=== PATIENT | female | born 1980 | race Caucasian/White ===

== ENCOUNTER 2016-06-30 11:11 | Inpatient (IN) | payer OTHER ==
[2016-06-30 11:50] VITALS: BMI 28.0
--- NOTE | 2016-06-30 13:32 | HP ---
Admission [facility] Chief Complaint: REHAB TX FOR ALCOHOL AND DRUG ADDICTION Allergies/Adverse Reactions: Allergies Allergy/AdvReac Type Severity Reaction Status Date / Time No Known Drug Allergies Allergy Verified 06/30/16 12:29 NKA Allergy Uncoded 06/30/16 12:29 History of Present Illness: 36 Y/O H/F WITH A HX OF ALCOHOL,CRACK AND MARIJUANA DEPENDENCE. PT STATES SHE ALSO BUYS/USES PILLS ON THE STREET---"RESPARIDOL". Exam Limitations: No Limitations - Ebola screening Have you traveled outside of the country in the last 21 days: No Have you had contact with anyone from an Ebola affected area: No Have you been sick,other than usual withdrawal symptoms: No Do you have a fever: No - Review of Systems Constitutional: Chills, Changes in sleep EENT: reports: Blurred Vision, Tearing, Nose Congestion, Dental Problems, Other (HX SEPTAL DEVIATION) Respiratory: reports: No Symptoms reported Cardiac: reports: Lightheadedness, Palpitations, Other (HX "SLIGHT HEART MURMUR ") GI: reports: Constipated, Diarrhea, Nausea, Poor Fluid Intake : reports: No Symptoms Reported Musculoskeletal: reports: Back Pain (HX HERNIATED DISC AVASCULAR NECROSIS- BILATERAL HIP BONES), Joint Pain (PLATE RIGHT ANKLE DUE TO FX FROM FALL IN 2012) , Muscle Pain Integumentary: reports: No Symptoms Reported Neuro: reports: Headache, Tremors, Unsteady Gait, Dizziness, Other (BACKOUTS) Endocrine: reports: No Symptoms Reported Hematology: reports: No Symptoms Reported Psychiatric: reports: Orientated x3, Anxious, Depressed (HX DEPRESSION) Other Systems: Reviewed and Negative Patient History - Patient Medical History Hx Anemia: No Hx Asthma: No Hx Chronic Obstructive Pulmonary Disease (COPD): No Hx Cardiac Disorders: Yes (HX HEART MURMUR) Hx Hypertension: No Hx Hypercholesterolemia: No HX Cerebrovascular Accident: No Hx Seizures: No Hx Diabetes: No Hx Gastrointestinal Disorders: No Hx Genitourinary Disorders: Yes (HX UTI) Hx Sexually Transmitted Disorders: Yes (HX GONORRHEA [place] ) Hx Renal Disease (ESRD): No Hx Thyroid Disease: No Hx Human Immunodeficiency Virus (HIV): No (NEGATIVE HX) Hx Hepatitis C: No Hx Depression: Yes (NO CURRENT MED) Hx Suicide Attempt: No (DENIES) Hx Bipolar Disorder: Yes Hx Schizophrenia: No - Patient Surgical History Past Surgical History: Yes Hx Neurologic Surgery: No Hx Cataract Extraction: No Hx Cardiac Surgery: No Hx Lung Surgery: No Hx Breast Biopsy: No Hx Abdominal Surgery: Yes (UMBILICAL HERNIA REPAIR IN 2007) Hx Appendectomy: No Hx Cholecystectomy: No Hx Genitourinary Surgery: No Hx Section: Yes (X1 IN OCTOBER 2014) Hx Orthopedic Surgery: Yes (RIGHT ANKLE W/PLATE DUE TO FX 2012) Hx Hysterectomy: No Other Surgical History: RHINOPLASTY IN 2011 DUE TO DEVIATED SEPTUM Anesthesia Reaction: No - PPD History Previous Implant?: Yes Documented Results: Negative w/o proof Implanted On Prior [facility] Admission?: No PPD to be Administered?: Yes - Reproductive History Patient is a Female of Child Bearing Age (11 -55 yrs old): Yes Last Menstrual Period: 06/05/16 Patient : No - Smoking Cessation Smoking history: Current every day smoker Have you smoked in the past 12 months: Yes Aproximately how many cigarettes per day: 6 Hx Chewing Tobacco Use: No Initiated information on smoking cessation: Yes 'Breaking Loose' booklet given: 06/30/16 - Substance & Tx. History Hx Alcohol Use: Yes (BEER/LIQUOR) Hx Substance Use: Yes (CRACK/MARIJUANA) Substance Use Type: Alcohol, Cocaine, Marijuana Hx Substance Use Treatment: Yes - Substances Abused Alcohol Route: Oral Frequency: 3-6 times per week (2-3X/WEEK) Amount used: 2 40 OZ/1 PT Age of first use: 11 Date of Last Use: 06/24/16 Crack Route: Smoking Frequency: Daily Amount used: $100 -150 Age of first use: 17 Date of Last Use: 06/26/16 Marijuana/Hashish Route: Smoking Frequency: Daily Amount used: $10 - 20 Age of first use: 11 Date of Last Use: 06/25/16 Family Disease History - Family Disease History Family Disease History: Diabetes: Grandparent (HTN/SRTOKE-), Heart Disease: Grandparent, Other: Grandparent, Father (HIV/AIDS-), Mother ( HIV/AIDS-) Admission Physical Exam [facility] - Vital Signs Vital Signs: Vital Signs - 24 hr 06/30/16 11:45 Temperature 97.7 F Pulse Rate 72 Respiratory 18 Rate Blood Pressure 93/57 - Physical General Appearance: Yes: No Apparent Distress, Irritable, Anxious HEENTM: Yes: EOMI, Normocephalic, LAKE, Pharynx Normal Respiratory: Yes: Chest Non-Tender, Lungs Clear, Normal Breath Sounds, No Respiratory Distress Neck: Yes: Supple, Trachea in good position Breast: Yes: Breast Exam Deferred Cardiology: Yes: S1, S2, Irregular Abdominal: Yes: Normal Bowel Sounds, Non Tender, Soft Genitourinary: Yes: Other (N/C) Back: Yes: Within Normal Limits Musculoskeletal: Yes: full range of Motion, Gait Steady Extremities: Yes: Normal Range of Motion, Non-Tender Neurological: Yes: tail edger II-XII NML intact, Fully Oriented, Alert Integumentary: Yes: Dry, Warm, Other (SX SCAR RIGHT ANKLE) Lymphatic: Yes: Within Normal Limits - Diagnostic (1) Alcohol dependence with uncomplicated withdrawal Current Visit: Yes Status: Chronic (2) Cocaine dependence, uncomplicated Current Visit: Yes Status: Acute (3) Cannabis dependence, uncomplicated Current Visit: Yes Status: Chronic Cleared for Admission [facility] - Detox or Rehab Claeared for Rehab Admission: Yes [facility] Breath Alcohol Content Breath Alcohol Content: 0 Urine Pregancy Test - Result Urine Test Results: Negative- NO Line Present Urine Drug Screen - Results Drug Screen Negative: No Urine Drug Screen Results: THC-Marijuana, ABBIE-Cocaine, BZO-Benzodiazepines, TCA- Tricyclic Antidepress
[2016-06-30] MEDS ORDERED: ACETAMINOPHEN 325 MG TABLET (FP) PO PRN (13:52)
[2016-06-30] MEDS ORDERED: MAGNESIUM CITRATE 300 ML BOTTLE PO PRN (13:52)
[2016-06-30] MEDS ORDERED: MAGNESIUM HYDROX 2400MG/30ML ORAL SUSPENSION 30 ML CUP PO PRN (13:52)
[2016-06-30] MEDS ORDERED: LOPERAMIDE HCL 2 MG CAPSULE PO PRN (13:52)
[2016-06-30] MEDS ORDERED: P-EPHED 60MG/TRIPROLIDI 2.5MG TABLET PO PRN (13:52)
[2016-06-30] MEDS ORDERED: IBUPROFEN 400 MG TABLET (FP) PO PRN (13:52)
[2016-06-30] MEDS ORDERED: MENTHOL/PHENOL 1 EACH UD MM PRN (13:52)
[2016-06-30] MEDS ORDERED: guaiFENesin/D-METHORPHAN HB 10 ML UNIT-DOSE CUPS PO PRN (13:52)
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
[2016-06-30] MEDS: NICOTINE POLACRILEX 2 MG GUM BUC PRN (17:45)
[2016-06-30 20:15] LABS: ALBUMIN 3.9 g/dl (3.4-5.0); ANION GAP 7 (8-16); BILIRUBIN,TOTAL 0.5 mg/dL (0.2-1.0); CALCIUM 9.3 mg/dL (8.5-10.1); CO2 27 mmol/L (21-32); CREATININE 0.9 mg/dL (0.55-1.02); GLUCOSE,RANDOM 107 mg/dL (74-106); SGOT/AST 41 U/L (15-37); SGPT/ALT 74 U/L (12-78)
[2016-06-30 20:16] LABS: ALK PHOS 94 U/L (45-117)
[2016-06-30 20:24] LABS: MCH 30.1 pg (25.7-33.7); MCHC 33.3 g/dl (32.0-36.0); MEAN CELL VOLUME 90.4 fl (80-96); MEAN PLT VOLUME 9.2 fl (7.5-11.1); PLATELET COUNT 290 K/MM3 (134-434); WHITE BLOOD COUNT 9.5 K/mm3 (4.0-10.0)
[2016-06-30 20:27] LABS: URINE APPEARANCE SLCLOUDY; URINE BILIRUBIN NEGATIVE (NEGATIVE); URINE BLOOD NEGATIVE (NEGATIVE); URINE COLOR YELLOW; URINE GLUCOSE (UA) NEGATIVE (NEGATIVE); URINE KETONE NEGATIVE (NEGATIVE); URINE LEUK ESTERASE NEGATIVE (NEGATIVE); URINE NITRITE NEGATIVE (NEGATIVE); URINE PROTEIN NEGATIVE (NEGATIVE); URINE UROBILINOGEN NEGATIVE E.U./dl (0.2-1.0)
[2016-06-30] MEDS: THIAMINE HCL 100 MG TABLET (FP) PO SCH (21:26)
[2016-06-30] MEDS: risperiDONE 2 MG TABLET PO SCH (21:26)
[2016-06-30] MEDS: diphenhydrAMINE HCL 50 MG CAPSULE PO PRN (21:27)
[2016-06-30 22:13] LABS: SICKLE CELL SCREEN NEGATIVE (NEGATIVE)
[2016-07-01] MEDS: PRENATAL VITAMINS W/ FOLIC ACID TABLET (FP) PO SCH (10:23)
[2016-07-01] MEDS: NICOTINE POLACRILEX 2 MG GUM BUC PRN ×4 (10:24→21:26)
[2016-07-01] MEDS: hydrOXYzine PAMOATE 25 MG CAPSULE (FP) PO PRN ×2 (10:24→17:36)
[2016-07-01 11:27] LABS: HIV 1 & 2 AB NEGATIVE; HIV 1 AGp24 NEGATIVE
--- NOTE | 2016-07-01 16:53 | EKG ---
Test Reason : Blood Pressure : / mmHG Vent. Rate : 079 BPM Atrial Rate : 079 BPM P-R Int : 168 ms QRS Dur : 084 ms QT Int : 370 ms P-R-T Axes : 030 041 052 degrees QTc Int : 424 ms SINUS RHYTHM WITH OCCASIONAL PREMATURE VENTRICULAR COMPLEXES OTHERWISE NORMAL ECG NO PREVIOUS ECGS AVAILABLE Confirmed by ARDHA GAMBOA, RADHA ([id number]) on 07/01/2016 4:53:07 PM Referred By: Confirmed By:RADHA GARCIA MD
[2016-07-01] MEDS: THIAMINE HCL 100 MG TABLET (FP) PO SCH (21:24)
[2016-07-01] MEDS: risperiDONE 2 MG TABLET PO SCH (21:24)
[2016-07-01] MEDS: diphenhydrAMINE HCL 50 MG CAPSULE PO PRN (21:25)
[2016-07-02] MEDS: PRENATAL VITAMINS W/ FOLIC ACID TABLET (FP) PO SCH (10:08)
[2016-07-02] MEDS: NICOTINE POLACRILEX 2 MG GUM BUC PRN ×2 (10:10→21:25)
[2016-07-02] MEDS: hydrOXYzine PAMOATE 25 MG CAPSULE (FP) PO PRN (10:10)
[2016-07-02] MEDS ORDERED: NAPROXEN 500 MG TABLET (FP) PO ONE (13:57)
[2016-07-02] MEDS: LIDOCAINE 5% TOPICAL PATCH TP SCH (14:46)
[2016-07-02] MEDS: CYCLOBENZAPRINE HCL 10 MG TABLET (FP) PO SCH ×2 (14:46→21:23)
[2016-07-02] MEDS: NAPROXEN 250 MG TABLET (FP) PO SCH (21:22)
[2016-07-02] MEDS: THIAMINE HCL 100 MG TABLET (FP) PO SCH (21:23)
[2016-07-02] MEDS: risperiDONE 2 MG TABLET PO SCH (21:24)
[2016-07-03] MEDS: CYCLOBENZAPRINE HCL 10 MG TABLET (FP) PO SCH ×3 (06:47→21:27)
[2016-07-03] MEDS: NICOTINE POLACRILEX 2 MG GUM BUC PRN ×2 (06:48→21:30)
[2016-07-03] MEDS: PRENATAL VITAMINS W/ FOLIC ACID TABLET (FP) PO SCH (10:03)
[2016-07-03] MEDS: NAPROXEN 250 MG TABLET (FP) PO SCH ×2 (10:04→21:28)
[2016-07-03] MEDS: LIDOCAINE 5% TOPICAL PATCH TP SCH (10:04)
[2016-07-03] MEDS: MAG HYDROX/AL HYDROX/SIMETH 30 ML UNIT-DOSE CUP PO PRN (10:07)
[2016-07-03] MEDS ORDERED: PT OWN MED DRAWER 7, Y5N ONE ×2 (19:22→23:34)
[2016-07-03] MEDS: risperiDONE 2 MG TABLET PO SCH (21:27)
[2016-07-03] MEDS: THIAMINE HCL 100 MG TABLET (FP) PO SCH (21:27)
[2016-07-03] MEDS: hydrOXYzine PAMOATE 25 MG CAPSULE (FP) PO PRN (21:29)
[2016-07-04] MEDS: hydrOXYzine PAMOATE 25 MG CAPSULE (FP) PO PRN ×2 (06:55→21:32)
[2016-07-04] MEDS: CYCLOBENZAPRINE HCL 10 MG TABLET (FP) PO SCH ×3 (06:55→21:31)
[2016-07-04] MEDS: NICOTINE POLACRILEX 2 MG GUM BUC PRN ×4 (06:57→21:33)
[2016-07-04] MEDS: NAPROXEN 250 MG TABLET (FP) PO SCH ×2 (10:00→21:31)
[2016-07-04] MEDS: PRENATAL VITAMINS W/ FOLIC ACID TABLET (FP) PO SCH (10:34)
[2016-07-04] MEDS: LIDOCAINE 5% TOPICAL PATCH TP SCH (10:35)
[2016-07-04] MEDS ORDERED: PT OWN MED DRAWER 7, Y5N ONE (19:15)
[2016-07-04] MEDS: risperiDONE 2 MG TABLET PO SCH (21:31)
[2016-07-04] MEDS: THIAMINE HCL 100 MG TABLET (FP) PO SCH (21:31)
[2016-07-05] MEDS: CYCLOBENZAPRINE HCL 10 MG TABLET (FP) PO SCH ×3 (06:27→21:37)
[2016-07-05] MEDS: NAPROXEN 250 MG TABLET (FP) PO SCH ×2 (10:14→21:39)
[2016-07-05] MEDS: PRENATAL VITAMINS W/ FOLIC ACID TABLET (FP) PO SCH (10:14)
[2016-07-05] MEDS: NICOTINE POLACRILEX 2 MG GUM BUC PRN ×2 (10:14→13:41)
[2016-07-05] MEDS: LIDOCAINE 5% TOPICAL PATCH TP SCH (10:14)
[2016-07-05] MEDS: MAG HYDROX/AL HYDROX/SIMETH 30 ML UNIT-DOSE CUP PO PRN (13:41)
[2016-07-05] MEDS: risperiDONE 2 MG TABLET PO SCH (21:37)
[2016-07-05] MEDS: THIAMINE HCL 100 MG TABLET (FP) PO SCH (21:37)
[2016-07-05] MEDS: hydrOXYzine PAMOATE 25 MG CAPSULE (FP) PO PRN (21:38)
[2016-07-06] MEDS: CYCLOBENZAPRINE HCL 10 MG TABLET (FP) PO SCH ×3 (06:22→21:30)
[2016-07-06] MEDS ORDERED: PT OWN MED DRAWER 7, Y5N ONE ×2 (08:23→20:08)
[2016-07-06] MEDS: NAPROXEN 250 MG TABLET (FP) PO SCH ×2 (10:14→21:30)
[2016-07-06] MEDS: LIDOCAINE 5% TOPICAL PATCH TP SCH (10:14)
[2016-07-06] MEDS: PRENATAL VITAMINS W/ FOLIC ACID TABLET (FP) PO SCH (10:15)
[2016-07-06] MEDS: NICOTINE POLACRILEX 2 MG GUM BUC PRN (13:33)
[2016-07-06] MEDS: risperiDONE 2 MG TABLET PO SCH (21:30)
[2016-07-06] MEDS: THIAMINE HCL 100 MG TABLET (FP) PO SCH (21:30)
[2016-07-06] MEDS: hydrOXYzine PAMOATE 25 MG CAPSULE (FP) PO PRN (21:31)
[2016-07-07] MEDS: CYCLOBENZAPRINE HCL 10 MG TABLET (FP) PO SCH ×3 (06:57→21:31)
[2016-07-07] MEDS: NICOTINE POLACRILEX 2 MG GUM BUC PRN ×4 (06:58→21:31)
[2016-07-07] MEDS: LIDOCAINE 5% TOPICAL PATCH TP SCH (10:16)
[2016-07-07] MEDS: PRENATAL VITAMINS W/ FOLIC ACID TABLET (FP) PO SCH (10:16)
[2016-07-07] MEDS: NAPROXEN 250 MG TABLET (FP) PO SCH ×2 (10:16→21:32)
[2016-07-07] MEDS: hydrOXYzine PAMOATE 25 MG CAPSULE (FP) PO PRN (21:31)
[2016-07-07] MEDS: risperiDONE 2 MG TABLET PO SCH (21:31)
[2016-07-07] MEDS: THIAMINE HCL 100 MG TABLET (FP) PO SCH (21:31)
[2016-07-08] MEDS: CYCLOBENZAPRINE HCL 10 MG TABLET (FP) PO SCH ×3 (06:39→21:36)
[2016-07-08] MEDS: PRENATAL VITAMINS W/ FOLIC ACID TABLET (FP) PO SCH (10:38)
[2016-07-08] MEDS: NAPROXEN 250 MG TABLET (FP) PO SCH ×2 (10:38→21:37)
[2016-07-08] MEDS: NICOTINE POLACRILEX 2 MG GUM BUC PRN ×2 (10:39→13:57)
[2016-07-08] MEDS: LIDOCAINE 5% TOPICAL PATCH TP SCH (10:39)
[2016-07-08] MEDS ORDERED: PHENYLEPHRINE 0.25%/STARCH 1 EACH SUPP.RECT RC ONE (16:45)
[2016-07-08] MEDS: risperiDONE 2 MG TABLET PO SCH (21:36)
[2016-07-08] MEDS: hydrOXYzine PAMOATE 25 MG CAPSULE (FP) PO PRN (21:36)
[2016-07-08] MEDS: THIAMINE HCL 100 MG TABLET (FP) PO SCH (21:36)
[2016-07-09] MEDS: CYCLOBENZAPRINE HCL 10 MG TABLET (FP) PO SCH ×3 (06:25→21:29)
[2016-07-09] MEDS ORDERED: PT OWN MED DRAWER 7, Y5N ONE ×3 (08:17→23:35)
[2016-07-09] MEDS: NAPROXEN 250 MG TABLET (FP) PO SCH ×2 (10:31→21:31)
[2016-07-09] MEDS: PRENATAL VITAMINS W/ FOLIC ACID TABLET (FP) PO SCH (10:31)
[2016-07-09] MEDS: NICOTINE POLACRILEX 2 MG GUM BUC PRN ×2 (10:32→14:39)
[2016-07-09] MEDS: LIDOCAINE 5% TOPICAL PATCH TP SCH (10:32)
[2016-07-09] MEDS ORDERED: HYDROCORTISONE ACETATE 25 MG/SUPP.RECT RC ONE (12:53)
[2016-07-09] MEDS: HYDROCORTISONE 2.5% TOPICAL CREAM 30 GM TUBE TP SCH ×2 (14:17→21:30)
[2016-07-09] MEDS: THIAMINE HCL 100 MG TABLET (FP) PO SCH (21:29)
[2016-07-09] MEDS: hydrOXYzine PAMOATE 25 MG CAPSULE (FP) PO PRN (21:29)
[2016-07-09] MEDS: DOCUSATE SODIUM 100 MG CAPSULE (FP) PO SCH (21:31)
[2016-07-09] MEDS: risperiDONE 2 MG TABLET PO SCH (21:33)
[2016-07-10] MEDS: CYCLOBENZAPRINE HCL 10 MG TABLET (FP) PO SCH ×3 (06:20→21:24)
[2016-07-10] MEDS: LIDOCAINE 5% TOPICAL PATCH TP SCH (10:14)
[2016-07-10] MEDS: HYDROCORTISONE 2.5% TOPICAL CREAM 30 GM TUBE TP SCH ×2 (10:14→21:25)
[2016-07-10] MEDS: NAPROXEN 250 MG TABLET (FP) PO SCH ×2 (10:14→21:23)
[2016-07-10] MEDS: PRENATAL VITAMINS W/ FOLIC ACID TABLET (FP) PO SCH (10:15)
[2016-07-10] MEDS: hydrOXYzine PAMOATE 25 MG CAPSULE (FP) PO PRN ×2 (10:16→21:25)
[2016-07-10] MEDS: NICOTINE POLACRILEX 2 MG GUM BUC PRN ×3 (10:17→21:27)
[2016-07-10] MEDS: DOCUSATE SODIUM 100 MG CAPSULE (FP) PO SCH (21:23)
[2016-07-10] MEDS: risperiDONE 2 MG TABLET PO SCH (21:24)
[2016-07-10] MEDS: THIAMINE HCL 100 MG TABLET (FP) PO SCH (21:24)
[2016-07-11] MEDS: CYCLOBENZAPRINE HCL 10 MG TABLET (FP) PO SCH ×3 (06:19→21:18)
[2016-07-11] MEDS: NAPROXEN 250 MG TABLET (FP) PO SCH ×2 (10:14→21:18)
[2016-07-11] MEDS: LIDOCAINE 5% TOPICAL PATCH TP SCH (10:14)
[2016-07-11] MEDS: PRENATAL VITAMINS W/ FOLIC ACID TABLET (FP) PO SCH (10:14)
[2016-07-11] MEDS: HYDROCORTISONE 2.5% TOPICAL CREAM 30 GM TUBE TP SCH ×2 (10:15→21:19)
[2016-07-11] MEDS: NICOTINE POLACRILEX 2 MG GUM BUC PRN ×3 (10:16→17:30)
[2016-07-11] MEDS ORDERED: PT OWN MED DRAWER 7, Y5N ONE ×2 (12:55→14:27)
[2016-07-11] MEDS: DOCUSATE SODIUM 100 MG CAPSULE (FP) PO SCH (21:18)
[2016-07-11] MEDS: risperiDONE 2 MG TABLET PO SCH (21:18)
[2016-07-11] MEDS: THIAMINE HCL 100 MG TABLET (FP) PO SCH (21:19)
[2016-07-11] MEDS: hydrOXYzine PAMOATE 25 MG CAPSULE (FP) PO PRN (21:20)
[2016-07-12] MEDS: CYCLOBENZAPRINE HCL 10 MG TABLET (FP) PO SCH ×3 (06:29→21:30)
[2016-07-12] MEDS: HYDROCORTISONE 2.5% TOPICAL CREAM 30 GM TUBE TP SCH ×2 (10:02→21:31)
[2016-07-12] MEDS: PRENATAL VITAMINS W/ FOLIC ACID TABLET (FP) PO SCH (10:02)
[2016-07-12] MEDS: LIDOCAINE 5% TOPICAL PATCH TP SCH (10:02)
[2016-07-12] MEDS: NAPROXEN 250 MG TABLET (FP) PO SCH ×2 (10:03→21:30)
[2016-07-12] MEDS: NICOTINE POLACRILEX 2 MG GUM BUC PRN ×2 (10:04→13:13)
--- NOTE | 2016-07-12 17:17 | PN ---
[id number] 69 108/71 Date of Session: 07/12/16 Chief Complaint:: Progress update HPI: Patient addressed Alcohol,Cocaine and Cannabis dependence comorbid with ROS: Significant for Avascular necrosis. of Both hips. Current Medications: Active Medications Generic Name Dose Route Start Last Admin Trade Name Freq PRN Reason Stop Dose Admin Acetaminophen 650 mg 06/30/16 13:52 Tylenol - PO Q4H PRN PAIN Al Hydroxide/Mg Hydroxide 30 ml 06/30/16 13:52 07/05/16 13:41 Mylanta Oral Suspension - PO 30 ml Q6H PRN Administration DYSPEPSIA Cyclobenzaprine HCl 10 mg 07/02/16 14:00 07/12/16 13:11 Flexeril - PO 10 mg TID SUSAN Administration Diphenhydramine HCl 50 mg 06/30/16 13:52 07/01/16 21:25 Benadryl - PO 50 mg HSMR1 PRN Administration INSOMNIA Docusate Sodium 300 mg 07/09/16 22:00 07/11/16 21:18 Colace - PO 300 mg HS SUSAN Administration Eucalyptus/Menthol/Phenol/Sorbitol 1 each 06/30/16 13:52 Cepastat Lozenge - MM Q4H PRN SORE THROAT Guaifenesin 10 ml 06/30/16 13:52 Robitussin Dm - PO Q6H PRN COUGH Hydrocortisone 1 applic 07/09/16 12:30 07/12/16 10:02 Anusol 2.5% Hc Cream - TP 1 applic BID SUSAN Administration Hydroxyzine Pamoate 25 mg 06/30/16 13:52 07/11/16 21:20 Vistaril - PO 25 mg Q4H PRN Administration AGITATION Lidocaine 1 patch 07/02/16 14:00 07/12/16 10:02 Lidoderm Patch - TP 1 patch DAILY SUSAN Administration Loperamide HCl 4 mg 06/30/16 13:52 Imodium - PO Q6H PRN DIARRHEA Magnesium Citrate 300 ml 06/30/16 13:52 07/10/16 10:18 Citroma - PO 300 ml Q48H PRN Administration CONSTIPATION Magnesium Hydroxide 30 ml 06/30/16 13:52 07/09/16 16:50 Milk Of Magnesia - PO 30 ml DAILY PRN Administration CONSTIPATION Naproxen 250 mg 07/02/16 22:00 07/12/16 10:03 Naprosyn - PO 250 mg BID SUSAN Administration Nicotine Polacrilex 2 mg 06/30/16 13:52 07/12/16 13:13 Nicorette Gum - BUC 2 mg Q2H PRN Administration NICOTINE REPLACEMENT RX Multivit/Folic Acid/Iron 1 tab 07/01/16 10:00 07/12/16 10:02 Vitamins (Sjr) - PO 1 tab DAILY SUSAN Administration Pseudoephedrine/Triprolidine 1 combo 06/30/16 13:52 Actifed - PO TID PRN NASAL CONGESTION Risperidone 2 mg 06/30/16 22:00 07/11/16 21:18 Risperdal - PO 2 mg HS SUSAN Administration Thiamine HCl 100 mg 06/30/16 22:00 07/11/16 21:19 Vitamin B1 - PO 100 mg HS SUSAN Administration Trazodone HCl 50 mg 07/12/16 22:00 Desyrel - PO HS SUSAN Current Side Effect: No Lab tests ordered: No Lab tests reviewed: Yes Provider note:: Patient was evaluated due to her request to see a psychiatrist regarding possibility of applying for SSI.Patients chart was revuewed,History, Diagnosis,medications has been discussed with the patient . Patient reports that she is stable at present and responding to medications. She advised to discuss her situation with her counselour and treating physician on outpatient.Patient is cooperative,compliant with treatment. Continue current medications as per plan. Supportive therapy provided. Total face to face time:: 30 Mental Status Exam - Mental Status Exam Alert and Oriented to: Time, Place, Person Cognitive Function: Grossly Intact Patient Appearance: Unkempt Mood: Anxious Affect: Mood Congruent, Labile Patient Behavior: Restless Speech Pattern: Clear Voice Loudness: Normal Thought Process: Goal Oriented Thought Disorder: Being Controlled Hallucinations: Denies Suicidal Ideation: Denies Homicidal Ideation: Denies Insight/Judgement: Fair Sleep: Fair Appetite: Fair Muscle strength/Tone: Normal Gait/Station: Normal Psychiatric Treatment Plan - Problem List (1) Cocaine dependence, uncomplicated Current Visit: Yes (2) Alcohol dependence with uncomplicated withdrawal Current Visit: Yes (3) Cannabis dependence, uncomplicated Current Visit: Yes (4) Bipolar disorder Current Visit: Yes (5) Herniated lumbar intervertebral disc Current Visit: Yes (6) Avascular necrosis of bones of both hips Current Visit: Yes
[2016-07-12] MEDS: THIAMINE HCL 100 MG TABLET (FP) PO SCH (21:29)
[2016-07-12] MEDS: hydrOXYzine PAMOATE 25 MG CAPSULE (FP) PO PRN (21:29)
[2016-07-12] MEDS: risperiDONE 2 MG TABLET PO SCH (21:29)
[2016-07-12] MEDS: DOCUSATE SODIUM 100 MG CAPSULE (FP) PO SCH (21:29)
[2016-07-12] MEDS ORDERED: PT OWN MED DRAWER 7, Y5N ONE (21:31)
[2016-07-12] MEDS ORDERED: traZODone HCL 50 MG TABLET (FP) PO SCH (22:00)
[2016-07-13] MEDS: CYCLOBENZAPRINE HCL 10 MG TABLET (FP) PO SCH ×3 (06:38→21:30)
[2016-07-13] MEDS: PRENATAL VITAMINS W/ FOLIC ACID TABLET (FP) PO SCH (10:07)
[2016-07-13] MEDS: NAPROXEN 250 MG TABLET (FP) PO SCH ×2 (10:07→21:31)
[2016-07-13] MEDS: LIDOCAINE 5% TOPICAL PATCH TP SCH (10:07)
[2016-07-13] MEDS: HYDROCORTISONE 2.5% TOPICAL CREAM 30 GM TUBE TP SCH ×2 (10:08→21:31)
[2016-07-13] MEDS: NICOTINE POLACRILEX 2 MG GUM BUC PRN ×2 (10:34→13:52)
[2016-07-13] MEDS: hydrOXYzine PAMOATE 25 MG CAPSULE (FP) PO PRN (21:29)
[2016-07-13] MEDS: THIAMINE HCL 100 MG TABLET (FP) PO SCH (21:29)
[2016-07-13] MEDS: DOCUSATE SODIUM 100 MG CAPSULE (FP) PO SCH (21:30)
[2016-07-13] MEDS: risperiDONE 2 MG TABLET PO SCH (21:30)
[2016-07-13] MEDS ORDERED: TUBERCULIN PPD 5 TU/0.1ML VIAL ID ONE (23:20)
[2016-07-14] MEDS: CYCLOBENZAPRINE HCL 10 MG TABLET (FP) PO SCH ×3 (06:28→21:23)
[2016-07-14] MEDS: NAPROXEN 250 MG TABLET (FP) PO SCH ×2 (10:07→21:23)
[2016-07-14] MEDS: PRENATAL VITAMINS W/ FOLIC ACID TABLET (FP) PO SCH (10:07)
[2016-07-14] MEDS: LIDOCAINE 5% TOPICAL PATCH TP SCH (10:08)
[2016-07-14] MEDS: HYDROCORTISONE 2.5% TOPICAL CREAM 30 GM TUBE TP SCH ×2 (10:08→21:26)
[2016-07-14] MEDS: NICOTINE POLACRILEX 2 MG GUM BUC PRN ×3 (10:09→21:25)
[2016-07-14] MEDS ORDERED: MAGNESIUM CITRATE 300 ML BOTTLE PO ONE (14:31)
--- NOTE | 2016-07-14 14:33 | PN ---
[facility] Progress Note Note: C/O SEVERE CONSTIPATION P : CITROMA + METAMUCIL + COLACE
[2016-07-14] MEDS ORDERED: PT OWN MED DRAWER 7, Y5N ONE (19:59)
[2016-07-14] MEDS: DOCUSATE SODIUM 100 MG CAPSULE (FP) PO SCH (21:22)
[2016-07-14] MEDS: risperiDONE 2 MG TABLET PO SCH (21:23)
[2016-07-14] MEDS: THIAMINE HCL 100 MG TABLET (FP) PO SCH (21:23)
[2016-07-14] MEDS: hydrOXYzine PAMOATE 25 MG CAPSULE (FP) PO PRN (21:25)
[2016-07-14] MEDS: PSYLLIUM 5.85 GM PACKET PO SCH (21:26)
[2016-07-15] MEDS: CYCLOBENZAPRINE HCL 10 MG TABLET (FP) PO SCH ×3 (06:18→21:26)
[2016-07-15] MEDS ORDERED: PT OWN MED DRAWER 7, Y5N ONE ×4 (08:56→23:30)
[2016-07-15] MEDS: LIDOCAINE 5% TOPICAL PATCH TP SCH (10:27)
[2016-07-15] MEDS: HYDROCORTISONE 2.5% TOPICAL CREAM 30 GM TUBE TP SCH ×2 (10:27→21:28)
[2016-07-15] MEDS: PRENATAL VITAMINS W/ FOLIC ACID TABLET (FP) PO SCH (10:27)
[2016-07-15] MEDS: PSYLLIUM 5.85 GM PACKET PO SCH ×2 (10:27→21:28)
[2016-07-15] MEDS: NAPROXEN 250 MG TABLET (FP) PO SCH ×2 (10:28→22:30)
[2016-07-15] MEDS: NICOTINE POLACRILEX 2 MG GUM BUC PRN ×3 (10:28→18:13)
[2016-07-15] MEDS: risperiDONE 2 MG TABLET PO SCH (21:26)
[2016-07-15] MEDS: DOCUSATE SODIUM 100 MG CAPSULE (FP) PO SCH (21:26)
[2016-07-15] MEDS: THIAMINE HCL 100 MG TABLET (FP) PO SCH (21:26)
[2016-07-15] MEDS: hydrOXYzine PAMOATE 25 MG CAPSULE (FP) PO PRN (21:26)
[2016-07-16] MEDS: CYCLOBENZAPRINE HCL 10 MG TABLET (FP) PO SCH ×3 (06:02→21:44)
[2016-07-16] MEDS ORDERED: PT OWN MED DRAWER 7, Y5N ONE ×4 (08:35→20:12)
[2016-07-16] MEDS: NICOTINE POLACRILEX 2 MG GUM BUC PRN ×2 (09:34→20:15)
[2016-07-16] MEDS: PSYLLIUM 5.85 GM PACKET PO SCH ×2 (10:16→22:15)
[2016-07-16] MEDS: LIDOCAINE 5% TOPICAL PATCH TP SCH (10:16)
[2016-07-16] MEDS: PRENATAL VITAMINS W/ FOLIC ACID TABLET (FP) PO SCH (10:17)
[2016-07-16] MEDS: HYDROCORTISONE 2.5% TOPICAL CREAM 30 GM TUBE TP SCH ×2 (10:17→21:46)
[2016-07-16] MEDS: NAPROXEN 250 MG TABLET (FP) PO SCH ×2 (10:17→21:44)
[2016-07-16] MEDS: hydrOXYzine PAMOATE 25 MG CAPSULE (FP) PO PRN ×2 (15:36→21:44)
[2016-07-16] MEDS: THIAMINE HCL 100 MG TABLET (FP) PO SCH (21:44)
[2016-07-16] MEDS: risperiDONE 2 MG TABLET PO SCH (21:44)
[2016-07-16] MEDS: DOCUSATE SODIUM 100 MG CAPSULE (FP) PO SCH (21:44)
[2016-07-17] MEDS: CYCLOBENZAPRINE HCL 10 MG TABLET (FP) PO SCH ×3 (07:02→21:36)
[2016-07-17] MEDS: LIDOCAINE 5% TOPICAL PATCH TP SCH (10:10)
[2016-07-17] MEDS: HYDROCORTISONE 2.5% TOPICAL CREAM 30 GM TUBE TP SCH ×2 (10:11→21:36)
[2016-07-17] MEDS: PSYLLIUM 5.85 GM PACKET PO SCH ×2 (10:11→21:37)
[2016-07-17] MEDS: PRENATAL VITAMINS W/ FOLIC ACID TABLET (FP) PO SCH (10:11)
[2016-07-17] MEDS: hydrOXYzine PAMOATE 25 MG CAPSULE (FP) PO PRN ×2 (10:11→21:36)
[2016-07-17] MEDS: NAPROXEN 250 MG TABLET (FP) PO SCH ×2 (10:12→21:38)
[2016-07-17] MEDS: NICOTINE POLACRILEX 2 MG GUM BUC PRN ×2 (10:13→17:48)
[2016-07-17] MEDS: risperiDONE 2 MG TABLET PO SCH (21:36)
[2016-07-17] MEDS: THIAMINE HCL 100 MG TABLET (FP) PO SCH (21:36)
[2016-07-17] MEDS: DOCUSATE SODIUM 100 MG CAPSULE (FP) PO SCH (21:36)
[2016-07-18] MEDS: CYCLOBENZAPRINE HCL 10 MG TABLET (FP) PO SCH ×3 (06:24→21:48)
[2016-07-18] MEDS ORDERED: PT OWN MED DRAWER 7, Y5N ONE (07:44)
[2016-07-18] MEDS: PSYLLIUM 5.85 GM PACKET PO SCH ×2 (09:57→21:49)
[2016-07-18] MEDS: HYDROCORTISONE 2.5% TOPICAL CREAM 30 GM TUBE TP SCH ×2 (09:58→21:46)
[2016-07-18] MEDS: PRENATAL VITAMINS W/ FOLIC ACID TABLET (FP) PO SCH (09:58)
[2016-07-18] MEDS: LIDOCAINE 5% TOPICAL PATCH TP SCH (09:58)
[2016-07-18] MEDS: NAPROXEN 250 MG TABLET (FP) PO SCH ×2 (09:58→21:49)
[2016-07-18] MEDS: NICOTINE POLACRILEX 2 MG GUM BUC PRN ×3 (09:59→15:46)
[2016-07-18] MEDS: DOCUSATE SODIUM 100 MG CAPSULE (FP) PO SCH (21:48)
[2016-07-18] MEDS: risperiDONE 2 MG TABLET PO SCH (21:48)
[2016-07-18] MEDS: THIAMINE HCL 100 MG TABLET (FP) PO SCH (21:48)
[2016-07-18] MEDS: hydrOXYzine PAMOATE 25 MG CAPSULE (FP) PO PRN (21:48)
[2016-07-19] MEDS: CYCLOBENZAPRINE HCL 10 MG TABLET (FP) PO SCH ×3 (06:15→21:27)
[2016-07-19] MEDS: LIDOCAINE 5% TOPICAL PATCH TP SCH (10:14)
[2016-07-19] MEDS: PRENATAL VITAMINS W/ FOLIC ACID TABLET (FP) PO SCH (10:14)
[2016-07-19] MEDS: PSYLLIUM 5.85 GM PACKET PO SCH ×2 (10:14→21:28)
[2016-07-19] MEDS: NAPROXEN 250 MG TABLET (FP) PO SCH ×2 (10:14→21:29)
[2016-07-19] MEDS: HYDROCORTISONE 2.5% TOPICAL CREAM 30 GM TUBE TP SCH ×2 (10:15→21:28)
[2016-07-19] MEDS: NICOTINE POLACRILEX 2 MG GUM BUC PRN (10:41)
[2016-07-19] MEDS ORDERED: PT OWN MED DRAWER 7, Y5N ONE ×3 (10:45→15:58)
--- NOTE | 2016-07-19 16:30 | PN ---
Psychiatric Progress Note Vital Signs: Vital Signs Period Temp Pulse Resp BP Sys/Elizabeth Pulse Ox Last 24 Hr 97.8 F 80 18-18 112/70 Date of Session: 07/19/16 Chief Complaint:: Discharge visit HPI: Patient addressed Alcohol,Cocaine and Cannabis dependence comorbid with bipolar disorder. ROS: unremarkable Current Medications: Active Medications Generic Name Dose Route Start Last Admin Trade Name Freq PRN Reason Stop Dose Admin Acetaminophen 650 mg 06/30/16 13:52 Tylenol - PO Q4H PRN PAIN Al Hydroxide/Mg Hydroxide 30 ml 06/30/16 13:52 07/05/16 13:41 Mylanta Oral Suspension - PO 30 ml Q6H PRN Administration DYSPEPSIA Cyclobenzaprine HCl 10 mg 07/02/16 14:00 07/19/16 13:09 Flexeril - PO 10 mg TID SUSAN Administration Diphenhydramine HCl 50 mg 06/30/16 13:52 07/01/16 21:25 Benadryl - PO 50 mg HSMR1 PRN Administration INSOMNIA Docusate Sodium 300 mg 07/09/16 22:00 07/18/16 21:48 Colace - PO 300 mg HS SUSAN Administration Eucalyptus/Menthol/Phenol/Sorbitol 1 each 06/30/16 13:52 Cepastat Lozenge - MM Q4H PRN SORE THROAT Guaifenesin 10 ml 06/30/16 13:52 Robitussin Dm - PO Q6H PRN COUGH Hydrocortisone 1 applic 07/09/16 12:30 07/19/16 10:15 Anusol 2.5% Hc Cream - TP 1 applic BID SUSAN Administration Hydroxyzine Pamoate 25 mg 06/30/16 13:52 07/18/16 21:48 Vistaril - PO 25 mg Q4H PRN Administration AGITATION Lidocaine 1 patch 07/02/16 14:00 07/19/16 10:14 Lidoderm Patch - TP 1 patch DAILY SUSAN Administration Loperamide HCl 4 mg 06/30/16 13:52 Imodium - PO Q6H PRN DIARRHEA Magnesium Citrate 300 ml 06/30/16 13:52 07/10/16 10:18 Citroma - PO 300 ml Q48H PRN Administration CONSTIPATION Magnesium Hydroxide 30 ml 06/30/16 13:52 07/09/16 16:50 Milk Of Magnesia - PO 30 ml DAILY PRN Administration CONSTIPATION Naproxen 250 mg 07/02/16 22:00 07/19/16 10:14 Naprosyn - PO 250 mg BID SUSAN Administration Nicotine Polacrilex 2 mg 06/30/16 13:52 07/19/16 10:41 Nicorette Gum - BUC 2 mg Q2H PRN Administration NICOTINE REPLACEMENT RX Multivit/Folic Acid/Iron 1 tab 07/01/16 10:00 07/19/16 10:14 Vitamins (Sjr) - PO 1 tab DAILY SUSAN Administration Pseudoephedrine/Triprolidine 1 combo 06/30/16 13:52 Actifed - PO TID PRN NASAL CONGESTION Psyllium Hydrophilic Mucilloid 5.85 gm 07/14/16 22:00 07/19/16 10:14 Metamucil (Sugar-Free) - PO 5.85 gm BID SUSAN Administration Risperidone 2 mg 06/30/16 22:00 07/18/16 21:48 Risperdal - PO 2 mg HS SUSAN Administration Thiamine HCl 100 mg 06/30/16 22:00 07/18/16 21:48 Vitamin B1 - PO 100 mg HS SUSAN Administration Current Side Effect: No Lab tests ordered: No Lab tests reviewed: Yes Provider note:: patient will complete this program tomorrow .she has met her treatment goals and will continue to address her issues on outpatient basis at [facility]. Patient continues to find that Risperidone 2 mg po hs helps to reduce her mood instability.Script for 30 days supply provided. Therapy provided focusing on relapse prevention:coping skills, support utlization to maintain recovery porocess has been discussed with the patient. Total face to face time:: 30 Mental Status Exam - Mental Status Exam Alert and Oriented to: Time, Place, Person Cognitive Function: Grossly Intact Patient Appearance: Well Groomed Mood: Euthymic Affect: Mood Congruent, Normal Range Patient Behavior: Cooperative Speech Pattern: Clear Voice Loudness: Normal Thought Process: Goal Oriented Thought Disorder: Not Present Hallucinations: Denies Suicidal Ideation: Denies Homicidal Ideation: Denies Insight/Judgement: Fair Sleep: Fair Appetite: Good Muscle strength/Tone: Normal Gait/Station: Normal Psychiatric Treatment Plan - Problem List (1) Cocaine dependence, uncomplicated Current Visit: Yes (2) Alcohol dependence with uncomplicated withdrawal Current Visit: Yes (3) Cannabis dependence, uncomplicated Current Visit: Yes (4) Bipolar disorder Current Visit: Yes (5) Herniated lumbar intervertebral disc Current Visit: Yes (6) Avascular necrosis of bones of both hips Current Visit: Yes
[2016-07-19] MEDS: hydrOXYzine PAMOATE 25 MG CAPSULE (FP) PO PRN (21:27)
[2016-07-19] MEDS: DOCUSATE SODIUM 100 MG CAPSULE (FP) PO SCH (21:27)
[2016-07-19] MEDS: risperiDONE 2 MG TABLET PO SCH (21:27)
[2016-07-19] MEDS: THIAMINE HCL 100 MG TABLET (FP) PO SCH (21:27)
[2016-07-20] MEDS: CYCLOBENZAPRINE HCL 10 MG TABLET (FP) PO SCH (06:01)
[2016-07-20 06:50] VITALS: BP 104/64; PULSE 76; TEMP 97.3
[2016-07-20] MEDS: NICOTINE POLACRILEX 2 MG GUM BUC PRN (07:05)
[2016-07-20] MEDS: PRENATAL VITAMINS W/ FOLIC ACID TABLET (FP) PO SCH (09:03)
[2016-07-20] MEDS: LIDOCAINE 5% TOPICAL PATCH TP SCH (09:03)
[2016-07-20] MEDS: NAPROXEN 250 MG TABLET (FP) PO SCH (09:03)
[2016-07-20] MEDS: PSYLLIUM 5.85 GM PACKET PO SCH (09:03)
[2016-07-20] MEDS: HYDROCORTISONE 2.5% TOPICAL CREAM 30 GM TUBE TP SCH (09:04)
[2016-07-20] MEDS ORDERED: PT OWN MED DRAWER 7, Y5N ONE (09:35)
== END 2016-07-20 09:09 | disposition home or self-care (01) | DRG 772 ==
LOC: YASAS 11:11 → Y3E 14:14
PROVIDERS: ADMIT Psychiatry & Neurology Psychiatry; ATTEND Psychiatry & Neurology Psychiatry
PROC: HZ42ZZZ Group Counseling for Substance Abuse Treatment, Cognitive-Behavioral (ICD-10-PCS; principal; 2016-07-20)
DX: F10.230 Alcohol dependence with withdrawal, uncomplicated (principal); F14.20 Cocaine dependence, uncomplicated; F12.20 Cannabis dependence, uncomplicated; F31.9 Bipolar disorder, unspecified; M51.26 Other intervertebral disc displacement, lumbar region; M87.88 Other osteonecrosis, other site
CPT/HCPCS: 36415; 80053; 81003; 85027; 85660; 86593; 87389; 93005; 93010

== ENCOUNTER 2017-04-12 11:16 | Inpatient (IN) | payer OTHER ==
[2017-04-12 12:24] VITALS: BMI 28.5
[2017-04-12] MEDS ORDERED: MAGNESIUM CITRATE 300 ML BOTTLE PO PRN (13:05)
[2017-04-12] MEDS ORDERED: LOPERAMIDE HCL 2 MG CAPSULE PO PRN (13:05)
[2017-04-12] MEDS ORDERED: MAGNESIUM HYDROX 2400MG/30ML ORAL SUSPENSION 30 ML CUP PO PRN (13:05)
[2017-04-12] MEDS ORDERED: ACETAMINOPHEN 325 MG TABLET (FP) PO PRN (13:05)
[2017-04-12] MEDS ORDERED: IBUPROFEN 400 MG TABLET (FP) PO PRN (13:05)
[2017-04-12] MEDS ORDERED: MAG HYDROX/AL HYDROX/SIMETH 30 ML UNIT-DOSE CUP PO PRN (13:05)
[2017-04-12] MEDS ORDERED: guaiFENesin/D-METHORPHAN HB 10 ML UNIT-DOSE CUPS PO PRN (13:05)
[2017-04-12] MEDS ORDERED: P-EPHED 60MG/TRIPROLIDI 2.5MG TABLET PO PRN (13:05)
[2017-04-12] MEDS ORDERED: MENTHOL/PHENOL 1 EACH UD MM PRN (13:05)
--- NOTE | 2017-04-12 16:18 | HP ---
EMILY GAMBOA Rehab Assess/Revision - Admission History Admitted to Rehab from: [facility] [place] Date of Admission to Rehab: 04/12/17 - Vital signs Vital Signs: Vital Signs Period Temp Pulse Resp BP Sys/Elizabeth Pulse Ox Last 24 Hr 98.0 F-98.0 F 91-91 18-18 109-109/73-73 - Findings Detox History & Physical reviewed: Yes Concur with findings: Yes Comments/Additional Findings: transferred from detox to rehab admission as per protoccase
--- NOTE | 2017-04-12 16:19 | HP ---
Admission [facility] Allergies/Adverse Reactions: Allergies Allergy/AdvReac Type Severity Reaction Status Date / Time No Known Drug Allergies Allergy Verified 04/08/17 16:19 NKA Allergy Uncoded 04/08/17 16:19 - Ebola screening Have you traveled outside of the country in the last 21 days: No Have you had contact with anyone from an Ebola affected area: No Do you have a fever: No Patient History - Patient Medical History Hx Anemia: No Hx Asthma: No Hx Chronic Obstructive Pulmonary Disease (COPD): No Hx Cancer: No Hx Cardiac Disorders: Yes (Heart Murmur) Hx Congestive Heart Failure: No Hx Hypertension: No Hx Hypercholesterolemia: No Hx Pacemaker: No HX Cerebrovascular Accident: No Hx Seizures: No Hx Diabetes: No Hx Gastrointestinal Disorders: No Hx Genitourinary Disorders: No Hx Sexually Transmitted Disorders: Yes (Gonorrhea in 2007) Hx Renal Disease (ESRD): No Hx Thyroid Disease: No Hx Human Immunodeficiency Virus (HIV): No (NEGATIVE HX) Hx Hepatitis C: No Hx Depression: Yes Hx Suicide Attempt: No Hx Bipolar Disorder: Yes Hx Schizophrenia: No - Patient Surgical History Past Surgical History: Yes Hx Neurologic Surgery: No Hx Cataract Extraction: No Hx Cardiac Surgery: No Hx Lung Surgery: No Hx Breast Biopsy: No Hx Abdominal Surgery: Yes (UMBILICAL HERNIA REPAIR IN 2007) Hx Appendectomy: No Hx Cholecystectomy: No Hx Genitourinary Surgery: No Hx Section: Yes (X1 IN OCTOBER 2014) Hx Orthopedic Surgery: Yes (RIGHT ANKLE W/PLATE DUE TO FX 2012) Hx Hysterectomy: No Other Surgical History: RHINOPLASTY IN 2011 DUE TO DEVIATED SEPTUM Anesthesia Reaction: No - PPD History Previous Implant?: Yes Documented Results: Negative w/proof Implanted On Prior [facility] Admission?: No Date: 04/10/17 Results: 0mm - Reproductive History Last Menstrual Period: 04/01/17 Patient : No - Smoking Cessation Smoking history: Current every day smoker Have you smoked in the past 12 months: Yes Aproximately how many cigarettes per day: 6 Cigars Per Day: 0 Hx Chewing Tobacco Use: No Initiated information on smoking cessation: Yes 'Breaking Loose' booklet given: 04/12/17 - Substances Abused Alcohol Route: Oral Frequency: Daily Amount used: 6pack of beer Age of first use: 11 Date of Last Use: 04/08/17 Crack Route: Smoking Frequency: Daily Amount used: $200-300 Age of first use: 18 Date of Last Use: 04/01/17 Family Disease History - Family Disease History Family Disease History: Diabetes: Grandparent (HTN/SRTOKE-), Heart Disease: Grandparent, Other: Grandparent, Father (HIV/AIDS-), Mother ( HIV/AIDS-) Admission Physical Exam [facility] - Vital Signs Vital Signs: Vital Signs - 24 hr 04/12/17 04/12/17 11:59 12:23 Temperature 98.0 F 98.0 F Pulse Rate 91 H 91 H Respiratory 18 18 Rate Blood Pressure 109/73 109/73 [facility] Breath Alcohol Content Breath Alcohol Content: 0.022 Inpatient Rehab Admission - Initial Determination Are CD services needed?: Yes Free of communicable disease: Yes Not in need of hospitalization: Yes - Rehab Admission Criteria Previous failed treatment: Yes Poor recovery environment: Yes Comorbidities: Yes Lacks judgement: No Patient is meeting Inpatient Rehab admission criteria:: Yes
[2017-04-12] MEDS: hydrOXYzine PAMOATE 25 MG CAPSULE (FP) PO PRN (20:37)
[2017-04-12] MEDS: BENZTROPINE MESYLATE 1 MG TABLET (FP) PO SCH (21:06)
[2017-04-12] MEDS: risperiDONE 1 MG TABLET (FP) PO SCH (21:06)
[2017-04-12] MEDS: LIDOCAINE PATCH REMOVAL MC SCH (21:07)
[2017-04-12] MEDS: MIRTAZAPINE 15 MG TABLET (FP) PO SCH (21:07)
[2017-04-12] MEDS: THIAMINE HCL 100 MG TABLET (FP) PO SCH (21:07)
[2017-04-12] MEDS ORDERED: NICOTINE 21 MG/24 HOURS TOPICAL PATCH TD PRN (21:20)
[2017-04-12] MEDS: NICOTINE POLACRILEX 4 MG GUM BUC PRN (21:49)
[2017-04-13] MEDS: hydrOXYzine PAMOATE 25 MG CAPSULE (FP) PO PRN (07:18)
[2017-04-13] MEDS: NICOTINE POLACRILEX 4 MG GUM BUC PRN ×3 (08:19→21:14)
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
[2017-04-13] MEDS: PRENATAL VITAMINS W/ FOLIC ACID TABLET (FP) PO SCH (09:55)
[2017-04-13] MEDS: LIDOCAINE 5% TOPICAL PATCH TP SCH (09:55)
[2017-04-13] MEDS: BENZTROPINE MESYLATE 1 MG TABLET (FP) PO SCH ×2 (09:55→21:12)
[2017-04-13] MEDS: risperiDONE 1 MG TABLET (FP) PO SCH ×2 (09:55→21:12)
[2017-04-13] MEDS ORDERED: NICOTINE 21 MG/24 HOURS TOPICAL PATCH TD SCH (10:00)
[2017-04-13] MEDS: GABAPENTIN 100 MG CAPSULE (FP) PO SCH ×2 (13:06→21:12)
[2017-04-13] MEDS: hydrOXYzine PAMOATE 50 MG CAPSULE (FP) PO PRN (17:36)
[2017-04-13] MEDS: MIRTAZAPINE 15 MG TABLET (FP) PO SCH (21:12)
[2017-04-13] MEDS: LIDOCAINE PATCH REMOVAL MC SCH (21:13)
[2017-04-13] MEDS: THIAMINE HCL 100 MG TABLET (FP) PO SCH (21:13)
[2017-04-14] MEDS: GABAPENTIN 100 MG CAPSULE (FP) PO SCH ×3 (06:11→21:07)
[2017-04-14] MEDS: NICOTINE POLACRILEX 4 MG GUM BUC PRN ×4 (07:15→21:10)
[2017-04-14] MEDS: risperiDONE 1 MG TABLET (FP) PO SCH ×2 (09:57→21:07)
[2017-04-14] MEDS: PRENATAL VITAMINS W/ FOLIC ACID TABLET (FP) PO SCH (09:57)
[2017-04-14] MEDS: BENZTROPINE MESYLATE 1 MG TABLET (FP) PO SCH ×2 (09:57→21:07)
[2017-04-14] MEDS: LIDOCAINE 5% TOPICAL PATCH TP SCH (09:58)
[2017-04-14] MEDS: THIAMINE HCL 100 MG TABLET (FP) PO SCH (21:07)
[2017-04-14] MEDS: MIRTAZAPINE 15 MG TABLET (FP) PO SCH (21:07)
[2017-04-14] MEDS: hydrOXYzine PAMOATE 50 MG CAPSULE (FP) PO PRN (21:09)
[2017-04-14] MEDS: LIDOCAINE PATCH REMOVAL MC SCH (21:49)
[2017-04-15] MEDS: GABAPENTIN 100 MG CAPSULE (FP) PO SCH ×3 (06:23→21:04)
[2017-04-15] MEDS: BENZTROPINE MESYLATE 1 MG TABLET (FP) PO SCH ×2 (09:57→21:04)
[2017-04-15] MEDS: risperiDONE 1 MG TABLET (FP) PO SCH ×2 (09:58→21:04)
[2017-04-15] MEDS: LIDOCAINE 5% TOPICAL PATCH TP SCH (09:58)
[2017-04-15] MEDS: PRENATAL VITAMINS W/ FOLIC ACID TABLET (FP) PO SCH (09:58)
[2017-04-15] MEDS: NICOTINE POLACRILEX 4 MG GUM BUC PRN ×2 (10:37→15:38)
[2017-04-15] MEDS: hydrOXYzine PAMOATE 50 MG CAPSULE (FP) PO PRN ×2 (10:37→21:07)
[2017-04-15] MEDS: SENNOSIDES 8.6MG TABLET (FP) PO SCH ×2 (13:17→21:04)
[2017-04-15] MEDS: CYCLOBENZAPRINE HCL 5 MG TABLET PO PRN ×2 (15:37→21:07)
[2017-04-15] MEDS: MIRTAZAPINE 15 MG TABLET (FP) PO SCH (21:04)
[2017-04-15] MEDS: THIAMINE HCL 100 MG TABLET (FP) PO SCH (21:05)
[2017-04-15] MEDS: LIDOCAINE PATCH REMOVAL MC SCH (22:00)
[2017-04-16] MEDS: hydrOXYzine PAMOATE 50 MG CAPSULE (FP) PO PRN (03:37)
[2017-04-16] MEDS: GABAPENTIN 100 MG CAPSULE (FP) PO SCH ×3 (06:19→21:03)
[2017-04-16] MEDS: NICOTINE POLACRILEX 4 MG GUM BUC PRN ×4 (06:19→23:26)
[2017-04-16] MEDS: LIDOCAINE 5% TOPICAL PATCH TP SCH (09:27)
[2017-04-16] MEDS: SENNOSIDES 8.6MG TABLET (FP) PO SCH ×2 (09:28→21:03)
[2017-04-16] MEDS: risperiDONE 1 MG TABLET (FP) PO SCH ×2 (09:28→21:03)
[2017-04-16] MEDS: PRENATAL VITAMINS W/ FOLIC ACID TABLET (FP) PO SCH (09:28)
[2017-04-16] MEDS: BENZTROPINE MESYLATE 1 MG TABLET (FP) PO SCH ×2 (09:28→21:03)
[2017-04-16] MEDS ORDERED: MAGNESIUM CITRATE 300 ML BOTTLE PO PRN (10:35)
[2017-04-16] MEDS: THIAMINE HCL 100 MG TABLET (FP) PO SCH (21:03)
[2017-04-16] MEDS: MIRTAZAPINE 15 MG TABLET (FP) PO SCH (21:03)
[2017-04-16] MEDS: LIDOCAINE PATCH REMOVAL MC SCH (21:04)
[2017-04-17] MEDS: GABAPENTIN 100 MG CAPSULE (FP) PO SCH ×3 (06:31→21:34)
[2017-04-17] MEDS: NICOTINE POLACRILEX 4 MG GUM BUC PRN ×4 (06:32→21:35)
[2017-04-17] MEDS ORDERED: PT OWN MED DRAWER 7, Y5N ONE ×3 (08:04→11:51)
[2017-04-17] MEDS: BENZTROPINE MESYLATE 1 MG TABLET (FP) PO SCH ×2 (09:26→21:34)
[2017-04-17] MEDS: PRENATAL VITAMINS W/ FOLIC ACID TABLET (FP) PO SCH (09:27)
[2017-04-17] MEDS: risperiDONE 1 MG TABLET (FP) PO SCH ×2 (09:27→21:34)
[2017-04-17] MEDS: LIDOCAINE 5% TOPICAL PATCH TP SCH (09:27)
[2017-04-17] MEDS: SENNOSIDES 8.6MG TABLET (FP) PO SCH ×2 (09:27→21:34)
[2017-04-17] MEDS: CYCLOBENZAPRINE HCL 5 MG TABLET PO PRN (15:16)
[2017-04-17] MEDS: MIRTAZAPINE 15 MG TABLET (FP) PO SCH (21:34)
[2017-04-17] MEDS: LIDOCAINE PATCH REMOVAL MC SCH (21:34)
[2017-04-17] MEDS: THIAMINE HCL 100 MG TABLET (FP) PO SCH (21:34)
[2017-04-17] MEDS: hydrOXYzine PAMOATE 50 MG CAPSULE (FP) PO PRN (21:35)
[2017-04-18] MEDS: GABAPENTIN 100 MG CAPSULE (FP) PO SCH ×3 (06:29→21:02)
[2017-04-18] MEDS: NICOTINE POLACRILEX 4 MG GUM BUC PRN ×4 (06:29→18:59)
[2017-04-18] MEDS ORDERED: PT OWN MED DRAWER 7, Y5N ONE (08:35)
[2017-04-18] MEDS: SENNOSIDES 8.6MG TABLET (FP) PO SCH ×2 (10:00→21:01)
[2017-04-18] MEDS: risperiDONE 1 MG TABLET (FP) PO SCH ×2 (10:00→21:01)
[2017-04-18] MEDS: BENZTROPINE MESYLATE 1 MG TABLET (FP) PO SCH ×2 (10:00→21:03)
[2017-04-18] MEDS: PRENATAL VITAMINS W/ FOLIC ACID TABLET (FP) PO SCH (10:01)
[2017-04-18] MEDS: LIDOCAINE 5% TOPICAL PATCH TP SCH (10:01)
[2017-04-18] MEDS: hydrOXYzine PAMOATE 50 MG CAPSULE (FP) PO PRN ×2 (10:02→18:59)
[2017-04-18] MEDS: THIAMINE HCL 100 MG TABLET (FP) PO SCH (21:01)
[2017-04-18] MEDS: MIRTAZAPINE 15 MG TABLET (FP) PO SCH (21:02)
[2017-04-18] MEDS: LIDOCAINE PATCH REMOVAL MC SCH (21:02)
[2017-04-18] MEDS: traZODone HCL 50 MG TABLET (FP) PO SCH (21:03)
[2017-04-19] MEDS: GABAPENTIN 100 MG CAPSULE (FP) PO SCH ×3 (06:17→21:06)
[2017-04-19] MEDS: NICOTINE POLACRILEX 4 MG GUM BUC PRN ×4 (06:17→21:08)
[2017-04-19] MEDS ORDERED: PT OWN MED DRAWER 7, Y5N ONE (08:35)
[2017-04-19] MEDS: SENNOSIDES 8.6MG TABLET (FP) PO SCH ×2 (09:58→21:06)
[2017-04-19] MEDS: PRENATAL VITAMINS W/ FOLIC ACID TABLET (FP) PO SCH (09:58)
[2017-04-19] MEDS: risperiDONE 1 MG TABLET (FP) PO SCH ×2 (09:58→21:06)
[2017-04-19] MEDS: BENZTROPINE MESYLATE 1 MG TABLET (FP) PO SCH ×2 (09:58→21:06)
[2017-04-19] MEDS: LIDOCAINE 5% TOPICAL PATCH TP SCH (09:59)
--- NOTE | 2017-04-19 12:36 | PN ---
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
[2017-04-19] MEDS: MIRTAZAPINE 15 MG TABLET (FP) PO SCH (21:06)
[2017-04-19] MEDS: traZODone HCL 50 MG TABLET (FP) PO SCH (21:06)
[2017-04-19] MEDS: LIDOCAINE PATCH REMOVAL MC SCH (21:06)
[2017-04-19] MEDS: CYCLOBENZAPRINE HCL 5 MG TABLET PO PRN (21:07)
[2017-04-19] MEDS: THIAMINE HCL 100 MG TABLET (FP) PO SCH (21:08)
[2017-04-19] MEDS: hydrOXYzine PAMOATE 50 MG CAPSULE (FP) PO PRN (22:54)
[2017-04-20] MEDS: NICOTINE POLACRILEX 4 MG GUM BUC PRN ×5 (07:28→21:10)
[2017-04-20] MEDS: GABAPENTIN 100 MG CAPSULE (FP) PO SCH ×3 (07:28→21:07)
[2017-04-20] MEDS: PRENATAL VITAMINS W/ FOLIC ACID TABLET (FP) PO SCH (10:13)
[2017-04-20] MEDS: risperiDONE 1 MG TABLET (FP) PO SCH ×2 (10:13→21:07)
[2017-04-20] MEDS: SENNOSIDES 8.6MG TABLET (FP) PO SCH ×2 (10:13→21:07)
[2017-04-20] MEDS: BENZTROPINE MESYLATE 1 MG TABLET (FP) PO SCH ×2 (10:13→21:06)
[2017-04-20] MEDS: LIDOCAINE 5% TOPICAL PATCH TP SCH (10:14)
[2017-04-20] MEDS ORDERED: PT OWN MED DRAWER 7, Y5N ONE (13:25)
[2017-04-20] MEDS: CYCLOBENZAPRINE HCL 5 MG TABLET PO PRN (21:06)
[2017-04-20] MEDS: traZODone HCL 50 MG TABLET (FP) PO SCH (21:06)
[2017-04-20] MEDS: MIRTAZAPINE 15 MG TABLET (FP) PO SCH (21:07)
[2017-04-20] MEDS: LIDOCAINE PATCH REMOVAL MC SCH (21:07)
[2017-04-20] MEDS: THIAMINE HCL 100 MG TABLET (FP) PO SCH (21:07)
[2017-04-20] MEDS: hydrOXYzine PAMOATE 50 MG CAPSULE (FP) PO PRN (21:08)
[2017-04-21] MEDS: GABAPENTIN 100 MG CAPSULE (FP) PO SCH ×3 (06:15→21:02)
[2017-04-21] MEDS: NICOTINE POLACRILEX 4 MG GUM BUC PRN ×4 (06:15→18:55)
[2017-04-21] MEDS: PRENATAL VITAMINS W/ FOLIC ACID TABLET (FP) PO SCH (09:53)
[2017-04-21] MEDS: SENNOSIDES 8.6MG TABLET (FP) PO SCH ×2 (09:53→21:04)
[2017-04-21] MEDS: risperiDONE 1 MG TABLET (FP) PO SCH ×2 (09:54→21:01)
[2017-04-21] MEDS: BENZTROPINE MESYLATE 1 MG TABLET (FP) PO SCH ×2 (09:54→21:01)
[2017-04-21] MEDS: LIDOCAINE 5% TOPICAL PATCH TP SCH (09:54)
[2017-04-21] MEDS: traZODone HCL 50 MG TABLET (FP) PO SCH (21:01)
[2017-04-21] MEDS: THIAMINE HCL 100 MG TABLET (FP) PO SCH (21:01)
[2017-04-21] MEDS: LIDOCAINE PATCH REMOVAL MC SCH (21:02)
[2017-04-21] MEDS: MIRTAZAPINE 15 MG TABLET (FP) PO SCH (21:03)
[2017-04-21] MEDS: hydrOXYzine PAMOATE 50 MG CAPSULE (FP) PO PRN (21:04)
[2017-04-21] MEDS: CYCLOBENZAPRINE HCL 5 MG TABLET PO PRN (21:04)
[2017-04-22] MEDS: GABAPENTIN 100 MG CAPSULE (FP) PO SCH ×3 (06:45→21:04)
[2017-04-22] MEDS: NICOTINE POLACRILEX 4 MG GUM BUC PRN ×5 (06:45→21:05)
[2017-04-22] MEDS: SENNOSIDES 8.6MG TABLET (FP) PO SCH ×2 (10:05→21:04)
[2017-04-22] MEDS: BENZTROPINE MESYLATE 1 MG TABLET (FP) PO SCH ×2 (10:05→21:05)
[2017-04-22] MEDS: risperiDONE 1 MG TABLET (FP) PO SCH ×2 (10:05→21:04)
[2017-04-22] MEDS: LIDOCAINE 5% TOPICAL PATCH TP SCH (10:06)
[2017-04-22] MEDS: PRENATAL VITAMINS W/ FOLIC ACID TABLET (FP) PO SCH (10:06)
--- NOTE | 2017-04-22 11:42 | PN ---
Psychiatric Progress Note Vital Signs: Vital Signs Period Temp Pulse Resp BP Sys/Elizabeth Pulse Ox Last 24 Hr 97.0 F 69 16-18 106/70 Date of Session: 04/22/17 Chief Complaint:: Heladio still anxious,sleep is the problem. HPI: Alcohol,Cocaine and Cannabis dependence comorbid with Bipolar II Dsiorder. ROS: Significant for Disk disease,Bilateral hip avascular necrosis Current Medications: Active Medications Generic Name Dose Route Start Last Admin Trade Name Freq PRN Reason Stop Dose Admin Acetaminophen 650 mg 04/12/17 13:05 Tylenol - PO Q4H PRN FEVER OR PAIN Al Hydroxide/Mg Hydroxide 30 ml 04/12/17 13:05 Mylanta Oral Suspension - PO Q6H PRN DYSPEPSIA Benztropine Mesylate 0.5 mg 04/12/17 22:00 04/22/17 10:05 Cogentin - PO 0.5 mg BID SUSAN Administration Cyclobenzaprine HCl 5 mg 04/15/17 12:10 04/21/17 21:04 Cyclobenzaprine Hcl PO 5 mg TID PRN Administration MUSCLE SPASMS Eucalyptus/Menthol/Phenol/Sorbitol 1 each 04/12/17 13:05 Cepastat Lozenge - MM Q4H PRN SORE THROAT Gabapentin 100 mg 04/13/17 14:00 04/22/17 06:45 Neurontin - PO 100 mg TID SUSAN Administration Guaifenesin 10 ml 04/12/17 13:05 Robitussin Dm - PO Q6H PRN COUGH Hydroxyzine Pamoate 50 mg 04/13/17 11:52 04/21/17 21:04 Vistaril - PO 50 mg Q4H PRN Administration ANXIETY Ibuprofen 400 mg 04/12/17 13:05 04/14/17 19:04 Motrin - PO 400 mg Q6H PRN Administration PAIN Lidocaine 2 patch 04/15/17 12:11 04/22/17 10:06 Lidoderm Patch - TP 2 patch DAILY SUSAN Administration Loperamide HCl 4 mg 04/12/17 13:05 Imodium - PO Q6H PRN DIARRHEA Magnesium Hydroxide 30 ml 04/12/17 13:05 04/13/17 18:21 Milk Of Magnesia - PO 30 ml DAILY PRN Administration CONSTIPATION Mirtazapine 15 mg 04/12/17 22:00 04/21/17 21:03 Remeron - PO 15 mg HS SUSAN Administration Miscellaneous 1 each 04/12/17 22:00 04/21/17 21:02 Lidoderm Patch Removal MC 1 each DAILY@2200 SUSAN Administration Nicotine 21 mg 04/12/17 21:20 Nicoderm Patch - TD DAILY PRN WOUND CARE Nicotine Polacrilex 4 mg 04/12/17 21:19 04/22/17 10:04 Nicorette Gum - BUC 4 mg Q2H PRN Administration NICOTINE REPLACEMENT RX Multivit/Folic Acid/Iron 1 tab 04/13/17 10:00 04/22/17 10:06 Vitamins (Sjr) - PO 1 tab DAILY SSUAN Administration Pseudoephedrine/Triprolidine 1 combo 04/12/17 13:05 Actifed - PO TID PRN NASAL CONGESTION Risperidone 1 mg 04/12/17 22:00 04/22/17 10:05 Risperdal - PO 1 mg BID SUSAN Administration Senna 1 tab 04/15/17 12:15 04/22/17 10:05 Senna - PO 1 tab BID SUSAN Administration Thiamine HCl 100 mg 04/12/17 22:00 04/21/17 21:01 Vitamin B1 - PO 100 mg HS SUSAN Administration Trazodone HCl 50 mg 04/18/17 22:00 04/21/17 21:01 Desyrel - PO 50 mg HS SUSAN Administration Current Side Effect: No Lab tests ordered: No Lab tests reviewed: Yes Provider note:: Chart was revuewed ,patient was reevaluated today to address her anxiety,mood instability,depression and anger issues.Properties of Neurontin has been discussed with the patient including side effests,benefits and dose adjustment.Neurontin 100 mg po tid will be adjusted to 200 mg po tid.Continue Remenron 15 mg po hs,Risperidone 1 mg po bid,Cogentin 0,5 mg po bid and TRazodone 50 mg po hs. Supportive therapy provided. Total face to face time:: 30 Mental Status Exam - Mental Status Exam Alert and Oriented to: Time, Place, Person Cognitive Function: Grossly Intact Patient Appearance: Unkempt Mood: Anxious, Expansive Affect: Labile Patient Behavior: Restless, Talkative, Cooperative Speech Pattern: Clear Voice Loudness: Normal Thought Process: Goal Oriented Thought Disorder: Not Present Hallucinations: Denies Suicidal Ideation: Denies Homicidal Ideation: Denies Insight/Judgement: Fair Sleep: Difficulty falling asleep Appetite: Good Muscle strength/Tone: Normal Gait/Station: Normal Psychiatric Treatment Plan - Problem List (1) Herniated lumbar intervertebral disc Current Visit: Yes (2) Avascular necrosis of bones of both hips Current Visit: Yes (3) Nicotine dependence Current Visit: Yes Qualifiers: Nicotine product type: cigarettes Substance use status: uncomplicated Qualified Code(s): F17.210 - Nicotine dependence, cigarettes, uncomplicated (4) Alcohol dependence Current Visit: Yes (5) Cocaine dependence Current Visit: Yes (6) Cannabis dependence Current Visit: Yes (7) Bipolar II disorder Current Visit: Yes
[2017-04-22] MEDS ORDERED: PT OWN MED DRAWER 7, Y5N ONE (13:17)
[2017-04-22] MEDS: traZODone HCL 50 MG TABLET (FP) PO SCH (21:04)
[2017-04-22] MEDS: THIAMINE HCL 100 MG TABLET (FP) PO SCH (21:05)
[2017-04-22] MEDS: MIRTAZAPINE 15 MG TABLET (FP) PO SCH (21:05)
[2017-04-22] MEDS: hydrOXYzine PAMOATE 50 MG CAPSULE (FP) PO PRN (21:05)
[2017-04-22] MEDS: LIDOCAINE PATCH REMOVAL MC SCH (22:00)
[2017-04-23] MEDS: GABAPENTIN 100 MG CAPSULE (FP) PO SCH ×3 (06:44→21:07)
[2017-04-23] MEDS: NICOTINE POLACRILEX 4 MG GUM BUC PRN ×4 (06:45→21:09)
[2017-04-23] MEDS: BENZTROPINE MESYLATE 1 MG TABLET (FP) PO SCH ×2 (09:36→21:08)
[2017-04-23] MEDS: PRENATAL VITAMINS W/ FOLIC ACID TABLET (FP) PO SCH (09:37)
[2017-04-23] MEDS: SENNOSIDES 8.6MG TABLET (FP) PO SCH ×2 (09:37→21:08)
[2017-04-23] MEDS: risperiDONE 1 MG TABLET (FP) PO SCH ×2 (09:37→21:08)
[2017-04-23] MEDS: LIDOCAINE 5% TOPICAL PATCH TP SCH (09:38)
[2017-04-23] MEDS: traZODone HCL 50 MG TABLET (FP) PO SCH (21:06)
[2017-04-23] MEDS: THIAMINE HCL 100 MG TABLET (FP) PO SCH (21:07)
[2017-04-23] MEDS: MIRTAZAPINE 15 MG TABLET (FP) PO SCH (21:08)
[2017-04-23] MEDS: LIDOCAINE PATCH REMOVAL MC SCH (21:08)
[2017-04-23] MEDS: hydrOXYzine PAMOATE 50 MG CAPSULE (FP) PO PRN (21:09)
[2017-04-24] MEDS: GABAPENTIN 100 MG CAPSULE (FP) PO SCH ×3 (06:11→21:13)
[2017-04-24] MEDS: SENNOSIDES 8.6MG TABLET (FP) PO SCH ×2 (09:45→21:12)
[2017-04-24] MEDS: PRENATAL VITAMINS W/ FOLIC ACID TABLET (FP) PO SCH (09:45)
[2017-04-24] MEDS: risperiDONE 1 MG TABLET (FP) PO SCH ×2 (09:45→21:13)
[2017-04-24] MEDS: BENZTROPINE MESYLATE 1 MG TABLET (FP) PO SCH ×2 (09:45→21:14)
[2017-04-24] MEDS: NICOTINE POLACRILEX 4 MG GUM BUC PRN ×2 (09:46→12:41)
[2017-04-24] MEDS: LIDOCAINE 5% TOPICAL PATCH TP SCH (09:46)
[2017-04-24] MEDS: THIAMINE HCL 100 MG TABLET (FP) PO SCH (21:12)
[2017-04-24] MEDS: hydrOXYzine PAMOATE 50 MG CAPSULE (FP) PO PRN (21:12)
[2017-04-24] MEDS: traZODone HCL 50 MG TABLET (FP) PO SCH (21:13)
[2017-04-24] MEDS: MIRTAZAPINE 15 MG TABLET (FP) PO SCH (21:13)
[2017-04-24] MEDS: LIDOCAINE PATCH REMOVAL MC SCH (21:14)
[2017-04-24] MEDS ORDERED: PT OWN MED DRAWER 7, Y5N ONE (23:35)
[2017-04-25] MEDS: GABAPENTIN 100 MG CAPSULE (FP) PO SCH (06:40)
[2017-04-25] MEDS: NICOTINE POLACRILEX 4 MG GUM BUC PRN ×2 (06:41→09:38)
[2017-04-25 06:59] VITALS: BP 94/60; PULSE 78; TEMP 97.3
[2017-04-25] MEDS ORDERED: PT OWN MED DRAWER 7, Y5N ONE (08:30)
[2017-04-25] MEDS: LIDOCAINE 5% TOPICAL PATCH TP SCH (09:35)
[2017-04-25] MEDS: risperiDONE 1 MG TABLET (FP) PO SCH (09:35)
[2017-04-25] MEDS: SENNOSIDES 8.6MG TABLET (FP) PO SCH (09:35)
[2017-04-25] MEDS: PRENATAL VITAMINS W/ FOLIC ACID TABLET (FP) PO SCH (09:35)
[2017-04-25] MEDS: BENZTROPINE MESYLATE 1 MG TABLET (FP) PO SCH (09:35)
== END 2017-04-25 09:49 | disposition home or self-care (01) | DRG 772 ==
LOC: YASAS 11:16 → Y3E 11:18
PROVIDERS: ADMIT Psychiatry & Neurology Psychiatry; ATTEND Psychiatry & Neurology Psychiatry
PROC: HZ42ZZZ Group Counseling for Substance Abuse Treatment, Cognitive-Behavioral (ICD-10-PCS; principal; 2017-04-12)
DX: F10.230 Alcohol dependence with withdrawal, uncomplicated (principal); F14.20 Cocaine dependence, uncomplicated; F12.20 Cannabis dependence, uncomplicated; F17.210 Nicotine dependence, cigarettes, uncomplicated; F31.81 Bipolar II disorder; M51.26 Other intervertebral disc displacement, lumbar region; M87.852 Other osteonecrosis, left femur; M87.851 Other osteonecrosis, right femur; Z87.42 Personal history of other diseases of the female genital tract
CPT/HCPCS: 84703; J2794

== ENCOUNTER 2017-09-10 12:28 | Inpatient (IN) | payer OTHER ==
[2017-09-10 13:11] VITALS: BMI 29.4
--- NOTE | 2017-09-10 14:29 | HP ---
CIWA Score - CIWA Score Nausea/Vomitin-Mild Nausea/No Vomiting Muscle Tremors: 4-Moderate,w/Arms Extend Anxiety: 4-Mod. Anxious/Guarded Agitation: 4-Moderately Restless Paroxysmal Sweats: 1-Minimal Palms Moist Orientation: 0-Oriented Tacttile Disturbances: 1-Very Mild Itch/Numbness Auditory Disturbances: 1-Very Mild Visual Disturbances: 1-Very Mild Sensitivity Headache: 2-Mild CIWA-Ar Total Score: 19 Admission ROS BHS - HPI Chief Complaint: I'm tired, I want to stop, I can't stop on my own Allergies/Adverse Reactions: Allergies Allergy/AdvReac Type Severity Reaction Status Date / Time No Known Drug Allergies Allergy Verified 04/08/17 16:19 NKA Allergy Uncoded 04/08/17 16:19 History of Present Illness: 37 yo woman here for detox from alcohol - one of several admissions. Denies seizures but does have black outs. Limping, states pain due to AVN hips and back pain. States she has lost about 20 lbs. Exam Limitations: Clinical Condition - Ebola screening Have you traveled outside of the country in the last 21 days: No (N) Have you had contact with anyone from an Ebola affected area: No Have you been sick,other than usual withdrawal symptoms: No Do you have a fever: No - Review of Systems Constitutional: Loss of Appetite, Malaise, Changes in sleep, Weakness, Unintentional Wgt. Loss EENT: reports: No Symptoms Reported Respiratory: reports: Cough Cardiac: reports: No Symptoms Reported GI: reports: Nausea, Poor Appetite : reports: No Symptoms Reported Musculoskeletal: reports: Back Pain, Joint Pain, Muscle Pain Integumentary: reports: Dryness Neuro: reports: Headache, Tremors Endocrine: reports: No Symptoms Reported Hematology: reports: No Symptoms Reported Psychiatric: reports: Judgement Intact, Orientated x3, Anxious Other Systems: Reviewed and Negative Patient History - Patient Medical History Hx Anemia: No Hx Asthma: No Hx Chronic Obstructive Pulmonary Disease (COPD): No Hx Cancer: No Hx Cardiac Disorders: Yes (Heart Murmur) Hx Congestive Heart Failure: No Hx Hypertension: No Hx Hypercholesterolemia: No Hx Pacemaker: No HX Cerebrovascular Accident: No Hx Seizures: No Hx Dementia: No Hx Diabetes: No Hx Gastrointestinal Disorders: No Hx Liver Disease: No Hx Genitourinary Disorders: No Hx Sexually Transmitted Disorders: Yes (Gonorrhea in 2007) Hx Renal Disease (ESRD): No Hx Thyroid Disease: No Hx Human Immunodeficiency Virus (HIV): No (NEGATIVE HX) Hx Hepatitis C: No Hx Depression: Yes Hx Suicide Attempt: No Hx Bipolar Disorder: Yes (on meds, last hospitalized several weeks ago [facility]) Hx Schizophrenia: No Other Medical History: bilateral avascular necrosis hips; low back pain - DDD - Patient Surgical History Past Surgical History: Yes Hx Neurologic Surgery: No Hx Cataract Extraction: No Hx Cardiac Surgery: No Hx Lung Surgery: No Hx Breast Biopsy: No Hx Abdominal Surgery: Yes (UMBILICAL HERNIA REPAIR IN 2007) Hx Appendectomy: No Hx Cholecystectomy: No Hx Genitourinary Surgery: No Hx Section: Yes (X1 IN OCTOBER 2014) Hx Orthopedic Surgery: Yes (RIGHT ANKLE W/PLATE DUE TO FX 2012) Hx Hysterectomy: No Other Surgical History: RHINOPLASTY IN 2011 DUE TO DEVIATED SEPTUM Anesthesia Reaction: No - PPD History Date: 04/10/17 Results: 0mm - Reproductive History Patient is a Female of Child Bearing Age (11 -55 yrs old): Yes Last Menstrual Period: 04/01/17 - Smoking Cessation Smoking history: Current every day smoker Have you smoked in the past 12 months: Yes Aproximately how many cigarettes per day: 6 Cigars Per Day: 0 Hx Chewing Tobacco Use: No Initiated information on smoking cessation: Yes 'Breaking Loose' booklet given: 09/10/17 (give on floor) - Substance & Tx. History Hx Alcohol Use: Yes Hx Substance Use: Yes Substance Use Type: Alcohol, Cocaine Hx Substance Use Treatment: Yes (detox, rehab) - Substances Abused cocaine Route: Smoking Frequency: Daily Amount used: $200 Age of first use: 18 Date of Last Use: 09/08/17 marijuana Route: Smoking Frequency: 3-6 times per week Amount used: $20 Age of first use: 11 Date of Last Use: 09/04/17 alcohol Route: Oral Frequency: Daily Amount used: six pack of 16 oz beer Age of first use: 11 Date of Last Use: 09/10/17 Family Disease History - Family Disease History Family Disease History: Diabetes: Grandparent (HTN/SRTOKE-), Heart Disease: Grandparent, Other: Grandparent, Father (HIV/AIDS-), Mother ( HIV/AIDS-), Brother (three - healthy), Sister (one - healthy), Son (two - healthy), Daughter (two - healthy) Admission Physical Exam [facility] - Vital Signs Vital Signs: Vital Signs - 24 hr 09/10/17 13:10 Temperature 97.1 F L Pulse Rate 82 Respiratory 18 Rate Blood Pressure 117/65 - Physical General Appearance: Yes: Nourished, Appropriately Dressed, Moderate Distress, Tremorous, Irritable, Anxious HEENTM: Yes: Hearing grossly Normal, Normocephalic, Normal Voice, Pharynx Normal Respiratory: Yes: Normal Breath Sounds, No Respiratory Distress Neck: Yes: No masses,lesions,Nodules, Supple Breast: Yes: Breast Exam Deferred Cardiology: Yes: Regular Rhythm, Regular Rate Abdominal: Yes: Non Tender, Flat Genitourinary: Yes: Frequency Back: Yes: Decreased Range of Motion Musculoskeletal: Yes: Back pain, Joint Stiffness, Other (limping) Extremities: Yes: Other (limping, hip and back pain - chronic) Neurological: Yes: Fully Oriented, Alert, Normal Mood/Affect, Normal Response Integumentary: Yes: Normal Color, Dry, Warm Lymphatic: Yes: Within Normal Limits - Diagnostic (1) Alcohol dependence with uncomplicated withdrawal Current Visit: Yes Status: Acute (2) Cocaine dependence, uncomplicated Current Visit: Yes Status: Acute (3) Avascular necrosis of bones of both hips Current Visit: Yes Status: Chronic (4) Cannabis dependence Current Visit: Yes Status: Chronic (5) Herniated lumbar intervertebral disc Current Visit: Yes Status: Chronic (6) Nicotine dependence Current Visit: Yes Status: Chronic Qualifiers: Nicotine product type: cigarettes Substance use status: uncomplicated Qualified Code(s): F17.210 - Nicotine dependence, cigarettes, uncomplicated Cleared for Admission [facility] - Detox or Rehab [facility] Level of Care: Medically Managed Detox Regimen/Protocol: Librium [facility] Breath Alcohol Content Breath Alcohol Content: 0 Urine Pregancy Test - Result Urine Test Results: Negative- NO Line Present Urine Drug Screen - Results Urine Drug Screen Results: THC-Marijuana, ABBIE-Cocaine
[2017-09-10] MEDS ORDERED: MAGNESIUM HYDROX 2400MG/30ML ORAL SUSPENSION 30 ML CUP PO PRN (14:44)
[2017-09-10] MEDS ORDERED: LOPERAMIDE HCL 2 MG CAPSULE PO PRN (14:44)
[2017-09-10] MEDS ORDERED: guaiFENesin/D-METHORPHAN HB 10 ML UNIT-DOSE CUPS PO PRN (14:44)
[2017-09-10] MEDS ORDERED: hydrOXYzine PAMOATE 50 MG CAPSULE (FP) PO PRN (14:44)
[2017-09-10] MEDS ORDERED: MENTHOL/PHENOL 1 EACH UD MM PRN (14:44)
[2017-09-10] MEDS ORDERED: ACETAMINOPHEN 325 MG TABLET (FP) PO PRN (14:44)
[2017-09-10] MEDS ORDERED: IBUPROFEN 400 MG TABLET (FP) PO PRN (14:44)
[2017-09-10] MEDS ORDERED: chlordiazePOXIDE HCL 25 MG CAPSULE PO PRN (14:44)
[2017-09-10] MEDS ORDERED: MAG HYDROX/AL HYDROX/SIMETH 30 ML UNIT-DOSE CUP PO PRN (14:44)
[2017-09-10] MEDS ORDERED: MAGNESIUM CITRATE 300 ML BOTTLE PO PRN (14:44)
[2017-09-10] MEDS ORDERED: P-EPHED 60MG/TRIPROLIDI 2.5MG TABLET PO PRN (14:44)
[2017-09-10] MEDS ORDERED: chlordiazePOXIDE HCL 25 MG CAPSULE PO ONE (16:00)
[2017-09-10] MEDS: chlordiazePOXIDE HCL 25 MG CAPSULE PO SCH ×2 (17:31→22:16)
[2017-09-10] MEDS ORDERED: MELATONIN 5 MG TABLETS PO PRN (22:00)
[2017-09-10] MEDS: THIAMINE HCL 100 MG TABLET (FP) PO SCH (22:17)
[2017-09-10] MEDS: NICOTINE POLACRILEX 2 MG GUM BUC PRN (22:17)
[2017-09-11] MEDS: chlordiazePOXIDE HCL 25 MG CAPSULE PO SCH ×4 (05:26→22:17)
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
[2017-09-11] MEDS: PRENATAL VITAMINS W/ FOLIC ACID TABLET (FP) PO SCH (09:56)
[2017-09-11] MEDS: CYCLOBENZAPRINE HCL 10 MG TABLET (FP) PO PRN ×2 (09:56→22:18)
[2017-09-11 10:58] LABS: HEMATOCRIT 43.8 % (32.4-45.2); HEMOGLOBIN 14.6 GM/dL (10.7-15.3); MCH 30.3 pg (25.7-33.7); MCHC 33.4 g/dl (32.0-36.0); MEAN CELL VOLUME 90.8 fl (80-96); MEAN PLT VOLUME 9.2 fl (7.5-11.1); PLATELET COUNT 300 K/MM3 (134-434); RBC 4.83 M/mm3 (3.60-5.2); WHITE BLOOD COUNT 7.9 K/mm3 (4.0-10.0)
[2017-09-11 11:05] LABS: CHLORIDE 106 mmol/L (98-107); POTASSIUM 4.2 mmol/L (3.5-5.1); SODIUM 139 mmol/L (136-145)
--- NOTE | 2017-09-11 11:15 | PN ---
S CIWA - CIWA Score Nausea/Vomitin-Mild Nausea/No Vomiting Muscle Tremors: 4-Moderate,w/Arms Extend Anxiety: 4-Mod. Anxious/Guarded Agitation: 4-Moderately Restless Paroxysmal Sweats: 1-Minimal Palms Moist Orientation: 1-Uncertain about Date Tacttile Disturbances: 0-None Auditory Disturbances: 0-None Visual Disturbances: 0-None Headache: 0-None Present CIWA-Ar Total Score: 15 [facility]HS Progress Note (SOAP) Subjective: sweat tremor poor sleep anxiety restlessness Objective: 09/11/17 11:18 Vital Signs Temperature 98.8 F 09/11/17 09:56 Pulse Rate 85 09/11/17 09:56 Respiratory Rate 20 09/11/17 09:56 Blood Pressure 124/71 09/11/17 09:56 O2 Sat by Pulse Oximetry (%) Laboratory Last Values WBC 7.9 K/mm3 (4.0-10.0) D 09/11/17 07:40 RBC 4.83 M/mm3 (3.60-5.2) 09/11/17 07:40 Hgb 14.6 GM/dL (10.7-15.3) 09/11/17 07:40 Hct 43.8 % (32.4-45.2) 09/11/17 07:40 MCV 90.8 fl (80-96) 09/11/17 07:40 MCH 30.3 pg (25.7-33.7) 09/11/17 07:40 MCHC 33.4 g/dl (32.0-36.0) 09/11/17 07:40 RDW 14.0 % (11.6-15.6) 09/11/17 07:40 Plt Count 300 K/MM3 (134-434) 09/11/17 07:40 MPV 9.2 fl (7.5-11.1) 09/11/17 07:40 Sodium 139 mmol/L (136-145) 09/11/17 07:40 Potassium 4.2 mmol/L (3.5-5.1) 09/11/17 07:40 Chloride 106 mmol/L (98-107) 09/11/17 07:40 lab noted Assessment: 09/11/17 11:18 withdrawal sx 09/11/17 11:19 muscle sore Plan: continue detox muscle relaxant
[2017-09-11] MEDS ORDERED: CYCLOBENZAPRINE HCL 10 MG TABLET (FP) PO ONE (11:20)
[2017-09-11 12:30] LABS: ALBUMIN 3.5 g/dl (3.4-5.0); CREATININE 0.7 mg/dL (0.55-1.02); SGOT/AST 9 U/L (15-37); SGPT/ALT 23 U/L (12-78); TOT PROT 6.7 g/dl (6.4-8.2)
[2017-09-11 12:35] LABS: URINE APPEARANCE CLEAR; URINE BILIRUBIN NEGATIVE (<2.0 mg/dL); URINE BLOOD NEGATIVE (NEGATIVE); URINE COLOR STRAW; URINE GLUCOSE (UA) NEGATIVE (NEGATIVE); URINE KETONE NEGATIVE (NEGATIVE); URINE NITRITE NEGATIVE (NEGATIVE); URINE PROTEIN NEGATIVE (NEGATIVE); URINE UROBILINOGEN NEGATIVE mg/dL (0.2-1.0)
[2017-09-11 12:35] LABS: ALK PHOS 77 U/L (45-117); ANION GAP 6 (8-16); BILIRUBIN,TOTAL 0.3 mg/dL (0.2-1.0); BLOOD UREA NITROGEN 14 mg/dL (7-18); CALCIUM 9.2 mg/dL (8.5-10.1); CO2 27 mmol/L (21-32); GLUCOSE,RANDOM 116 mg/dL (74-106)
[2017-09-11 12:37] LABS: URINE LEUK ESTERASE 1+ (NEGATIVE)
[2017-09-11 12:41] LABS: EPI CELLS RARE /HPF (FEW); URINE MUCUS RARE
--- NOTE | 2017-09-11 16:22 | EKG ---
Test Reason : Blood Pressure : / mmHG Vent. Rate : 068 BPM Atrial Rate : 068 BPM P-R Int : 156 ms QRS Dur : 078 ms QT Int : 398 ms P-R-T Axes : -11 018 052 degrees QTc Int : 423 ms NORMAL SINUS RHYTHM NORMAL ECG WHEN COMPARED WITH ECG OF 08-APR-2017 17:43, NO SIGNIFICANT CHANGE WAS FOUND Confirmed by MD NJ, LIN ([id number]) on 09/11/2017 4:22:44 PM Referred By: Confirmed By:LIN MAURO MD
[2017-09-11] MEDS: QUEtiapine FUMARATE 100 MG TABLET (FP) PO SCH (22:17)
[2017-09-11] MEDS: THIAMINE HCL 100 MG TABLET (FP) PO SCH (22:17)
[2017-09-12] MEDS: chlordiazePOXIDE HCL 25 MG CAPSULE PO SCH ×2 (05:20→10:25)
[2017-09-12] MEDS: CYCLOBENZAPRINE HCL 10 MG TABLET (FP) PO PRN ×2 (05:20→17:53)
[2017-09-12] MEDS: NICOTINE POLACRILEX 2 MG GUM BUC PRN (08:49)
[2017-09-12] MEDS: PRENATAL VITAMINS W/ FOLIC ACID TABLET (FP) PO SCH (10:25)
--- NOTE | 2017-09-12 11:02 | PN ---
S CIWA - CIWA Score Nausea/Vomitin Muscle Tremors: 3 Anxiety: 3 Agitation: 2 Paroxysmal Sweats: 1-Minimal Palms Moist Orientation: 0-Oriented Tacttile Disturbances: 1-Very Mild Itch/Numbness Auditory Disturbances: 1-Very Mild Visual Disturbances: 0-None Headache: 2-Mild CIWA-Ar Total Score: 16 BHS Progress Note (SOAP) Subjective: ALERT,IRRITABLE,ANXIOUS,INTERRUPTED SLEEP,TREMOR Objective: 09/12/17 11:00 Vital Signs Temperature 97.7 F 09/12/17 09:01 Pulse Rate 82 09/12/17 09:01 Respiratory Rate 18 09/12/17 09:01 Blood Pressure 102/59 09/12/17 09:01 O2 Sat by Pulse Oximetry (%) 09/12/17 11:00 Laboratory Last Values WBC 7.9 K/mm3 (4.0-10.0) D 09/11/17 07:40 RBC 4.83 M/mm3 (3.60-5.2) 09/11/17 07:40 Hgb 14.6 GM/dL (10.7-15.3) 09/11/17 07:40 Hct 43.8 % (32.4-45.2) 09/11/17 07:40 MCV 90.8 fl (80-96) 09/11/17 07:40 MCH 30.3 pg (25.7-33.7) 09/11/17 07:40 MCHC 33.4 g/dl (32.0-36.0) 09/11/17 07:40 RDW 14.0 % (11.6-15.6) 09/11/17 07:40 Plt Count 300 K/MM3 (134-434) 09/11/17 07:40 MPV 9.2 fl (7.5-11.1) 09/11/17 07:40 Sodium 139 mmol/L (136-145) 09/11/17 07:40 Potassium 4.2 mmol/L (3.5-5.1) 09/11/17 07:40 Chloride 106 mmol/L (98-107) 09/11/17 07:40 Carbon Dioxide 27 mmol/L (21-32) 09/11/17 07:40 Anion Gap 6 (8-16) L 09/11/17 07:40 BUN 14 mg/dL (7-18) 09/11/17 07:40 Creatinine 0.7 mg/dL (0.55-1.02) 09/11/17 07:40 Creat Clearance w eGFR > 60 (>60) 09/11/17 07:40 Random Glucose 116 mg/dL (74-106) H 09/11/17 07:40 Calcium 9.2 mg/dL (8.5-10.1) 09/11/17 07:40 Total Bilirubin 0.3 mg/dL (0.2-1.0) D 09/11/17 07:40 AST 9 U/L (15-37) L 09/11/17 07:40 ALT 23 U/L (12-78) 09/11/17 07:40 Alkaline Phosphatase 77 U/L (45-117) 09/11/17 07:40 Total Protein 6.7 g/dl (6.4-8.2) 09/11/17 07:40 Albumin 3.5 g/dl (3.4-5.0) 09/11/17 07:40 Urine Color Straw 09/11/17 09:40 Urine Appearance Clear 09/11/17 09:40 Urine pH 6.0 (5.0-8.0) 09/11/17 09:40 Ur Specific [place] 1.010 (1.001-1.035) 09/11/17 09:40 Urine Protein Negative (NEGATIVE) 09/11/17 09:40 Urine Glucose (UA) Negative (NEGATIVE) 09/11/17 09:40 Urine Ketones Negative (NEGATIVE) 09/11/17 09:40 Urine Blood Negative (NEGATIVE) 09/11/17 09:40 Urine Nitrite Negative (NEGATIVE) 09/11/17 09:40 Urine Bilirubin Negative (<2.0 mg/dL) 09/11/17 09:40 Urine Urobilinogen Negative mg/dL (0.2-1.0) 09/11/17 09:40 Ur Leukocyte Esterase 1+ (NEGATIVE) H 09/11/17 09:40 Urine WBC (Auto) 3 /hpf (3-5) 09/11/17 09:40 Urine RBC (Auto) 2 /hpf (0-3) 09/11/17 09:40 Ur Epithelial Cells Rare /HPF (FEW) 09/11/17 09:40 Urine Mucus Rare 09/11/17 09:40 RPR Titer Nonreactive (NONREACTIVE) 09/11/17 07:40 HIV 1&2 Antibody Screen Negative 09/11/17 07:40 HIV P24 Antigen Negative 09/11/17 07:40 Assessment: 09/12/17 11:00 WITHDRAWAL SYMPTOM Plan: CONTINUE DETOX,INITIAL GLUCOSE 116,FASTING GLUCOSE IN AM
[2017-09-12] MEDS: chlordiazePOXIDE 5 MG CAPSULE PO SCH ×2 (17:30→22:17)
[2017-09-12] MEDS: THIAMINE HCL 100 MG TABLET (FP) PO SCH (22:15)
[2017-09-12] MEDS: QUEtiapine FUMARATE 100 MG TABLET (FP) PO SCH (22:17)
[2017-09-13] MEDS: chlordiazePOXIDE 5 MG CAPSULE PO SCH ×2 (05:09→10:07)
[2017-09-13] MEDS: CYCLOBENZAPRINE HCL 10 MG TABLET (FP) PO PRN (08:58)
[2017-09-13] MEDS: PRENATAL VITAMINS W/ FOLIC ACID TABLET (FP) PO SCH (10:07)
--- NOTE | 2017-09-13 11:03 | PN ---
S Progress Note (SOAP) Subjective: ALERT,IRRITABLE,ANXIOUS,INTERRUPTED SLEEP, Objective: 09/13/17 11:01 Vital Signs Temperature 97.9 F 09/13/17 05:57 Pulse Rate 89 09/13/17 05:57 Respiratory Rate 18 09/13/17 05:57 Blood Pressure 102/68 09/13/17 05:57 O2 Sat by Pulse Oximetry (%) Assessment: 09/13/17 11:02 WITHDRAWAL SYMPTOM Plan: CONTINUE DETOX,DISCHARGE IN AM
--- NOTE | 2017-09-13 14:19 | PN ---
S Progress Note Note: HISTORY OF LOW BACK PAIN,HERNIATED DISC,ON NEURONTIN,NEURONTIN 300 MS PO NOW THEN TID
[2017-09-13] MEDS: GABAPENTIN 300 MG CAPSULE (FP) PO SCH ×2 (14:55→22:17)
[2017-09-13] MEDS: chlordiazePOXIDE HCL 10 MG CAPSULE PO SCH ×2 (17:55→22:17)
[2017-09-13] MEDS: THIAMINE HCL 100 MG TABLET (FP) PO SCH (22:17)
[2017-09-13] MEDS: QUEtiapine FUMARATE 100 MG TABLET (FP) PO SCH (22:17)
[2017-09-14] MEDS: GABAPENTIN 300 MG CAPSULE (FP) PO SCH (05:47)
[2017-09-14] MEDS: chlordiazePOXIDE HCL 10 MG CAPSULE PO SCH ×2 (05:47→11:27)
[2017-09-14] MEDS: NICOTINE POLACRILEX 2 MG GUM BUC PRN ×2 (07:01→09:05)
--- NOTE | 2017-09-14 08:11 | PN ---
S Progress Note (SOAP) Subjective: ALERT,NO COMPLAINT Objective: 09/14/17 08:10 Vital Signs Temperature 97.0 F L 09/14/17 06:22 Pulse Rate 68 09/14/17 06:22 Respiratory Rate 18 09/14/17 06:22 Blood Pressure 101/56 09/14/17 06:22 O2 Sat by Pulse Oximetry (%) Assessment: 09/14/17 08:10 DETOX COMPLETED,NO WITHDRAWAL SYMPTOM Plan: DISCHARGE TODAY,FOLLOW UP WITH AFTER CARE PROGRAM ARRANGEMENT
--- NOTE | 2017-09-14 08:15 | DS ---
[facility] Detox Discharge Summary Admission Date: 09/10/17 Discharge Date: 09/14/17 - History Present History: Alcohol Dependence, Cannabis Dependence, Cocaine Dependence Additional Comments: FOLLOW UP WITH AFTER CARE PROGRAM ARRANGEMENT Pertinent Past History: HERNIATED LUMBAR DISC NICOTINE DEPENDENCE AVASCULAR NECROSIS BOTH HIPS - Physical Exam Results Vital Signs: Vital Signs Temperature 97.0 F L 09/14/17 06:22 Pulse Rate 68 09/14/17 06:22 Respiratory Rate 18 09/14/17 06:22 Blood Pressure 101/56 09/14/17 06:22 O2 Sat by Pulse Oximetry (%) Pertinent Admission Physical Exam Findings: WITHDRAWAL SIGNS AND SYMPTOM Vital Signs Temperature 97.0 F L 09/14/17 06:22 Pulse Rate 68 09/14/17 06:22 Respiratory Rate 18 09/14/17 06:22 Blood Pressure 101/56 09/14/17 06:22 O2 Sat by Pulse Oximetry (%) Laboratory Last Values WBC 7.9 K/mm3 (4.0-10.0) D 09/11/17 07:40 RBC 4.83 M/mm3 (3.60-5.2) 09/11/17 07:40 Hgb 14.6 GM/dL (10.7-15.3) 09/11/17 07:40 Hct 43.8 % (32.4-45.2) 09/11/17 07:40 MCV 90.8 fl (80-96) 09/11/17 07:40 MCH 30.3 pg (25.7-33.7) 09/11/17 07:40 MCHC 33.4 g/dl (32.0-36.0) 09/11/17 07:40 RDW 14.0 % (11.6-15.6) 09/11/17 07:40 Plt Count 300 K/MM3 (134-434) 09/11/17 07:40 MPV 9.2 fl (7.5-11.1) 09/11/17 07:40 Sodium 139 mmol/L (136-145) 09/11/17 07:40 Potassium 4.2 mmol/L (3.5-5.1) 09/11/17 07:40 Chloride 106 mmol/L (98-107) 09/11/17 07:40 Carbon Dioxide 27 mmol/L (21-32) 09/11/17 07:40 Anion Gap 6 (8-16) L 09/11/17 07:40 BUN 14 mg/dL (7-18) 09/11/17 07:40 Creatinine 0.7 mg/dL (0.55-1.02) 09/11/17 07:40 Creat Clearance w eGFR > 60 (>60) 09/11/17 07:40 Random Glucose 116 mg/dL (74-106) H 09/11/17 07:40 Fasting Glucose 83 mg/dL (70-105) 09/13/17 08:00 Calcium 9.2 mg/dL (8.5-10.1) 09/11/17 07:40 Total Bilirubin 0.3 mg/dL (0.2-1.0) D 09/11/17 07:40 AST 9 U/L (15-37) L 09/11/17 07:40 ALT 23 U/L (12-78) 09/11/17 07:40 Alkaline Phosphatase 77 U/L (45-117) 09/11/17 07:40 Total Protein 6.7 g/dl (6.4-8.2) 09/11/17 07:40 Albumin 3.5 g/dl (3.4-5.0) 09/11/17 07:40 Urine Color Straw 09/11/17 09:40 Urine Appearance Clear 09/11/17 09:40 Urine pH 6.0 (5.0-8.0) 09/11/17 09:40 Ur Specific [place] 1.010 (1.001-1.035) 09/11/17 09:40 Urine Protein Negative (NEGATIVE) 09/11/17 09:40 Urine Glucose (UA) Negative (NEGATIVE) 09/11/17 09:40 Urine Ketones Negative (NEGATIVE) 09/11/17 09:40 Urine Blood Negative (NEGATIVE) 09/11/17 09:40 Urine Nitrite Negative (NEGATIVE) 09/11/17 09:40 Urine Bilirubin Negative (<2.0 mg/dL) 09/11/17 09:40 Urine Urobilinogen Negative mg/dL (0.2-1.0) 09/11/17 09:40 Ur Leukocyte Esterase 1+ (NEGATIVE) H 09/11/17 09:40 Urine WBC (Auto) 3 /hpf (3-5) 09/11/17 09:40 Urine RBC (Auto) 2 /hpf (0-3) 09/11/17 09:40 Ur Epithelial Cells Rare /HPF (FEW) 09/11/17 09:40 Urine Mucus Rare 09/11/17 09:40 RPR Titer Nonreactive (NONREACTIVE) 09/11/17 07:40 HIV 1&2 Antibody Screen Negative 09/11/17 07:40 HIV P24 Antigen Negative 09/11/17 07:40 - Treatment Hospital Course: Detox Protocol Followed, Detoxed Safely, Responded well, Discharged Condition Good, Rehab Referral Accepted Patient has Accepted a Rehab Referral to: [facility] - Medication Discharge Medications: Ambulatory Orders Benztropine Mesylate [Cogentin -] 0.5 mg PO BID 04/12/17 Mirtazapine [Remeron -] 15 mg PO HS 04/12/17 Lidocaine 5% Patch [Lidoderm -] 2 patch TP DAILY #60 patch 04/22/17 Risperidone [Risperdal -] 1 mg PO BID #60 tablet 04/22/17 Sennosides [Senna -] 1 tab PO BID #60 tablet 04/22/17 Tizanidine HCl [Zanaflex] 4 mg PO TID #30 tablet 04/22/17 traZODone HCL [Desyrel -] 50 mg PO HS #30 tablet 04/22/17 Gabapentin [Neurontin -] 300 mg PO Q8H 09/10/17 - Diagnosis (1) Alcohol dependence with uncomplicated withdrawal Current Visit: Yes Status: Acute (2) Cannabis dependence Current Visit: Yes Status: Acute (3) Cocaine dependence, uncomplicated Current Visit: Yes Status: Acute (4) Nicotine dependence Current Visit: Yes Status: Acute Qualifiers: Nicotine product type: cigarettes Substance use status: uncomplicated Qualified Code(s): F17.210 - Nicotine dependence, cigarettes, uncomplicated (5) Substance induced mood disorder Current Visit: Yes Status: Acute (6) Avascular necrosis of bones of both hips Current Visit: Yes Status: Chronic (7) Herniated lumbar intervertebral disc Current Visit: Yes Status: Chronic (8) PTSD (post-traumatic stress disorder) Current Visit: Yes Status: Chronic (9) Bipolar II disorder Current Visit: No Status: Chronic - AMA Did Patient Leave Against Medical Advice: No
[2017-09-14 09:05] VITALS: BP 114/62; PULSE 93; TEMP 97.7
[2017-09-14] MEDS: PRENATAL VITAMINS W/ FOLIC ACID TABLET (FP) PO SCH (10:36)
[2017-09-14] MEDS: CYCLOBENZAPRINE HCL 10 MG TABLET (FP) PO PRN (10:37)
== END 2017-09-14 12:20 | disposition other institution (70) | DRG 774 ==
LOC: YASAS 12:28 → Y6N 16:57
PROVIDERS: ADMIT Internal Medicine; ATTEND Internal Medicine
PROC: HZ2ZZZZ Detoxification Services for Substance Abuse Treatment (ICD-10-PCS; principal; 2017-09-10)
DX: F10.230 Alcohol dependence with withdrawal, uncomplicated (principal); F14.20 Cocaine dependence, uncomplicated; F12.20 Cannabis dependence, uncomplicated; F17.210 Nicotine dependence, cigarettes, uncomplicated; F31.81 Bipolar II disorder; F19.282 Other psychoactive substance dependence with psychoactive substance-induced sleep disorder; F19.24 Other psychoactive substance dependence with psychoactive substance-induced mood disorder; F43.10 Post-traumatic stress disorder, unspecified; M51.26 Other intervertebral disc displacement, lumbar region; M87.850 Other osteonecrosis, pelvis
CPT/HCPCS: 36415; 80053; 81003; 81015; 82947; 85027; 86593; 87389; 93005; 93010

== ENCOUNTER 2017-09-14 12:35 | Inpatient (IN) | payer OTHER ==
[2017-09-14] MEDS ORDERED: MAG HYDROX/AL HYDROX/SIMETH 30 ML UNIT-DOSE CUP PO PRN ×2 (14:01→14:21)
[2017-09-14] MEDS ORDERED: MAGNESIUM CITRATE 300 ML BOTTLE PO PRN ×2 (14:01→14:21)
[2017-09-14] MEDS ORDERED: LOPERAMIDE HCL 2 MG CAPSULE PO PRN (14:01)
[2017-09-14] MEDS ORDERED: guaiFENesin/D-METHORPHAN HB 10 ML UNIT-DOSE CUPS PO PRN ×2 (14:01→14:21)
[2017-09-14] MEDS ORDERED: P-EPHED 60MG/TRIPROLIDI 2.5MG TABLET PO PRN ×2 (14:01→14:21)
[2017-09-14] MEDS ORDERED: IBUPROFEN 400 MG TABLET (FP) PO PRN ×2 (14:01→14:21)
[2017-09-14] MEDS ORDERED: MENTHOL/PHENOL 1 EACH UD MM PRN ×2 (14:01→14:21)
[2017-09-14] MEDS ORDERED: ACETAMINOPHEN 325 MG TABLET (FP) PO PRN ×2 (14:01→14:21)
[2017-09-14] MEDS ORDERED: MAGNESIUM HYDROX 2400MG/30ML ORAL SUSPENSION 30 ML CUP PO PRN ×2 (14:01→14:21)
--- NOTE | 2017-09-14 14:01 | HP ---
[facility] Re[facility] Assess/Revision - Admission History Admitted to Rehab from: [facility] [place] Date of Admission to Rehab: 09/14/17 - Vital signs Vital Signs: Vital Signs Period Temp Pulse Resp BP Sys/Eliazbeth Pulse Ox Last 24 Hr 77 17 105/66 - Findings Detox History & Physical reviewed: Yes Concur with findings: Yes Comments/Additional Findings: FOR REHAB PROTOCOL Inpatient Rehab Admission - Initial Determination Are CD services needed?: Yes Free of communicable disease: Yes Not in need of hospitalization: Yes - Rehab Admission Criteria Previous failed treatment: Yes Poor recovery environment: Yes Comorbidities: Yes Lacks judgement: No Patient is meeting Inpatient Rehab admission criteria:: Yes
[2017-09-14] MEDS ORDERED: CYCLOBENZAPRINE HCL 5 MG TABLET PO PRN (14:23)
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
[2017-09-14] MEDS: hydrOXYzine PAMOATE 50 MG CAPSULE (FP) PO PRN ×2 (15:48→21:13)
[2017-09-14] MEDS: QUEtiapine FUMARATE 100 MG TABLET (FP) PO SCH (21:13)
[2017-09-14] MEDS: GABAPENTIN 300 MG CAPSULE (FP) PO SCH (21:13)
[2017-09-14] MEDS: THIAMINE HCL 100 MG TABLET (FP) PO SCH (21:14)
[2017-09-14] MEDS: BENZTROPINE MESYLATE 1 MG TABLET (FP) PO SCH (21:15)
[2017-09-14] MEDS ORDERED: THIAMINE HCL 100 MG TABLET (FP) PO SCH (22:00)
[2017-09-14] MEDS ORDERED: MELATONIN 5 MG TABLETS PO PRN ×2 (22:00)
--- NOTE | 2017-09-14 22:22 | PN ---
[facility] Progress Note Note: Patient reports cigarette cravings. Nicorette gum 4mg BUC Q2H prn ordered.
[2017-09-14] MEDS: NICOTINE POLACRILEX 4 MG GUM BUC PRN (23:45)
[2017-09-15] MEDS: GABAPENTIN 300 MG CAPSULE (FP) PO SCH ×3 (06:41→21:07)
[2017-09-15] MEDS: LOPERAMIDE HCL 2 MG CAPSULE PO PRN ×2 (06:49→15:34)
[2017-09-15] MEDS: BENZTROPINE MESYLATE 1 MG TABLET (FP) PO SCH ×2 (09:46→21:06)
[2017-09-15] MEDS: PRENATAL VITAMINS W/ FOLIC ACID TABLET (FP) PO SCH (09:46)
[2017-09-15] MEDS ORDERED: PRENATAL VITAMINS W/ FOLIC ACID TABLET (FP) PO SCH (10:00)
[2017-09-15] MEDS: NICOTINE POLACRILEX 4 MG GUM BUC PRN ×3 (12:45→21:07)
[2017-09-15] MEDS: hydrOXYzine PAMOATE 50 MG CAPSULE (FP) PO PRN (17:46)
[2017-09-15] MEDS: THIAMINE HCL 100 MG TABLET (FP) PO SCH (21:06)
[2017-09-15] MEDS: QUEtiapine FUMARATE 100 MG TABLET (FP) PO SCH (21:07)
[2017-09-16] MEDS: LOPERAMIDE HCL 2 MG CAPSULE PO PRN (04:22)
[2017-09-16] MEDS: GABAPENTIN 300 MG CAPSULE (FP) PO SCH ×3 (06:57→21:13)
[2017-09-16] MEDS: NICOTINE POLACRILEX 4 MG GUM BUC PRN ×2 (08:18→15:58)
[2017-09-16] MEDS: PRENATAL VITAMINS W/ FOLIC ACID TABLET (FP) PO SCH (09:38)
[2017-09-16] MEDS: BENZTROPINE MESYLATE 1 MG TABLET (FP) PO SCH ×2 (09:38→21:15)
[2017-09-16] MEDS: hydrOXYzine PAMOATE 50 MG CAPSULE (FP) PO PRN (09:40)
--- NOTE | 2017-09-16 13:06 | PN ---
[facility] Progress Note Note: Patient complains of low back pain due to hx of disc herniation, chronic. States flexeril at current does ineffective. Requesting Lidocaine topical patch. Also reports having multiple epsiodes of diarrhea. Vital Signs Temperature 97.8 F 09/16/17 07:07 Pulse Rate 66 09/16/17 07:07 Respiratory Rate 18 09/16/17 07:07 Blood Pressure 100/69 09/16/17 07:07 O2 Sat by Pulse Oximetry (%) Obj: General: alert and oriented x 3. In NAD. skin warm and dry Gi: soft, no distention, BS + Ext: no edema, full ROM A/P: Chronic LBP Withdrawal symptoms Will increase flexeril to 10mg TID prn, add lidocaine patch increase oral fluids continue loperamide for diarrhea check stool for cdiff continue to monitor clinically
--- NOTE | 2017-09-16 16:05 | PN ---
[facility] Progress Note Note: Patient reports sleeping difficulties,stating that it takes time to fall asleep and her sleep pattern very interrupted.She states ths Seroquel used to help much. better in the past on higher dose.Properties of Seroquel has been discussed with the patient.Seroquel 100 mg po hs will be adjusted to 150 mg po hs.
[2017-09-16] MEDS: THIAMINE HCL 100 MG TABLET (FP) PO SCH (21:13)
[2017-09-16] MEDS: QUEtiapine FUMARATE 50 MG TABLET PO SCH (21:14)
[2017-09-16] MEDS: LIDOCAINE PATCH REMOVAL MC SCH (21:15)
[2017-09-17] MEDS: GABAPENTIN 300 MG CAPSULE (FP) PO SCH ×3 (07:02→21:09)
[2017-09-17] MEDS: LIDOCAINE 5% TOPICAL PATCH TP SCH (09:28)
[2017-09-17] MEDS: PRENATAL VITAMINS W/ FOLIC ACID TABLET (FP) PO SCH (09:28)
[2017-09-17] MEDS: BENZTROPINE MESYLATE 1 MG TABLET (FP) PO SCH ×2 (09:30→21:09)
[2017-09-17] MEDS: hydrOXYzine PAMOATE 50 MG CAPSULE (FP) PO PRN ×2 (09:30→21:12)
[2017-09-17] MEDS: NICOTINE POLACRILEX 4 MG GUM BUC PRN ×2 (17:27→21:12)
[2017-09-17] MEDS: LIDOCAINE PATCH REMOVAL MC SCH (21:09)
[2017-09-17] MEDS: QUEtiapine FUMARATE 50 MG TABLET PO SCH (21:09)
[2017-09-17] MEDS: THIAMINE HCL 100 MG TABLET (FP) PO SCH (21:09)
--- NOTE | 2017-09-18 00:35 | PN ---
[facility] Progress Note Note: DC C DIFF NO DIARRHEA X 2 DAYS
[2017-09-18] MEDS: GABAPENTIN 300 MG CAPSULE (FP) PO SCH ×3 (06:28→21:09)
[2017-09-18] MEDS: NICOTINE POLACRILEX 4 MG GUM BUC PRN ×3 (08:33→20:04)
[2017-09-18] MEDS: hydrOXYzine PAMOATE 50 MG CAPSULE (FP) PO PRN ×2 (09:26→17:41)
[2017-09-18] MEDS: PRENATAL VITAMINS W/ FOLIC ACID TABLET (FP) PO SCH (09:26)
[2017-09-18] MEDS: BENZTROPINE MESYLATE 1 MG TABLET (FP) PO SCH ×2 (09:26→21:11)
[2017-09-18] MEDS: LIDOCAINE 5% TOPICAL PATCH TP SCH (09:27)
[2017-09-18] MEDS: QUEtiapine FUMARATE 50 MG TABLET PO SCH (21:08)
[2017-09-18] MEDS: THIAMINE HCL 100 MG TABLET (FP) PO SCH (21:09)
[2017-09-18] MEDS: LIDOCAINE PATCH REMOVAL MC SCH (21:09)
[2017-09-19] MEDS: GABAPENTIN 300 MG CAPSULE (FP) PO SCH ×3 (06:36→21:02)
[2017-09-19] MEDS: CYCLOBENZAPRINE HCL 10 MG TABLET (FP) PO PRN ×2 (07:16→21:58)
[2017-09-19] MEDS: LIDOCAINE 5% TOPICAL PATCH TP SCH (09:40)
[2017-09-19] MEDS: BENZTROPINE MESYLATE 1 MG TABLET (FP) PO SCH ×2 (09:40→21:03)
[2017-09-19] MEDS: PRENATAL VITAMINS W/ FOLIC ACID TABLET (FP) PO SCH (09:40)
[2017-09-19] MEDS: NICOTINE POLACRILEX 4 MG GUM BUC PRN ×3 (09:41→17:45)
[2017-09-19] MEDS: hydrOXYzine PAMOATE 50 MG CAPSULE (FP) PO PRN (13:55)
--- NOTE | 2017-09-19 15:52 | PN ---
Psychiatric Progress Note Vital Signs: Vital Signs Period Temp Pulse Resp BP Sys/Elizabeth Pulse Ox Last 24 Hr 97.2 F 66 98/66 Date of Session: 09/19/17 Chief Complaint:: Heladio very depressed,nervious,still having craving dreams." HPI: Patient addressed Alcohol,cannabis and Cocaine depenence comorbid with Bipolar disorder,PTSD. ROS: Significant for Low back pain. Current Medications: Active Medications Generic Name Dose Route Start Last Admin Trade Name Freq PRN Reason Stop Dose Admin Acetaminophen 650 mg 09/14/17 14:21 Tylenol - PO Q4H PRN FEVER Al Hydroxide/Mg Hydroxide 30 ml 09/14/17 14:21 Mylanta Oral Suspension - PO Q6H PRN DYSPEPSIA Aripiprazole 2 mg 09/19/17 16:00 Abilify PO DAILY SUSAN Benztropine Mesylate 0.5 mg 09/14/17 22:00 09/19/17 09:40 Cogentin - PO 0.5 mg BID SUSAN Administration Cyclobenzaprine HCl 10 mg 09/16/17 12:56 09/19/17 07:16 Flexeril - PO 10 mg TID PRN Administration MUSCLE SPASMS Escitalopram Oxalate 5 mg 09/19/17 15:45 Lexapro - PO DAILY SUSAN Eucalyptus/Menthol/Phenol/Sorbitol 1 each 09/14/17 14:21 Cepastat Lozenge - MM Q4H PRN SORE THROAT Gabapentin 300 mg 09/14/17 22:00 09/19/17 13:36 Neurontin - PO 300 mg TID SUSAN Administration Guaifenesin 10 ml 09/14/17 14:21 Robitussin Dm - PO Q6H PRN COUGH Hydroxyzine Pamoate 50 mg 09/14/17 14:01 09/19/17 13:55 Vistaril - PO 50 mg Q4H PRN Administration AGITATION Ibuprofen 400 mg 09/14/17 14:21 Motrin - PO Q6H PRN Pain Level 4-6 Lidocaine 1 patch 09/17/17 10:00 09/19/17 09:40 Lidoderm Patch - TP 1 patch DAILY SUSAN Administration Loperamide HCl 4 mg 09/14/17 14:21 09/16/17 04:22 Imodium - PO 4 mg Q6H PRN Administration DIARRHEA Magnesium Citrate 300 ml 09/14/17 14:21 Citroma - PO Q48H PRN CONSTIPATION Magnesium Hydroxide 30 ml 09/14/17 14:21 Milk Of Magnesia - PO DAILY PRN CONSTIPATION Melatonin 5 mg 09/14/17 22:00 09/14/17 23:46 Melatonin PO 5 mg HS PRN Administration INSOMNIA Miscellaneous 1 each 09/16/17 22:00 09/18/17 21:09 Lidoderm Patch Removal MC 1 each DAILY@2200 SUSAN Administration Nicotine Polacrilex 4 mg 09/14/17 22:21 09/19/17 13:55 Nicorette Gum - BUC 4 mg Q2H PRN Administration NICOTINE REPLACEMENT RX Multivit/Folic Acid/Iron 1 tab 09/15/17 10:00 09/19/17 09:40 Vitamins (Sjr) - PO 1 tab DAILY SUSAN Administration Pseudoephedrine/Triprolidine 1 combo 09/14/17 14:21 Actifed - PO TID PRN NASAL CONGESTION Quetiapine Fumarate 150 mg 09/16/17 22:00 09/18/17 21:08 Seroquel - PO 150 mg HS SUSAN Administration Thiamine HCl 100 mg 09/14/17 22:00 09/18/17 21:09 Vitamin B1 - PO 100 mg HS SUSAN Administration Current Side Effect: No Lab tests ordered: No Lab tests reviewed: Yes Provider note:: Chart was revuewed,patient was seen in my office to address ongoing depressed mood,anxiety,crying episodes.She is also reporting mood instability.Reports sleeping better with Seroquel 150 mg po hs.properties of Lexapro has been discussed with the patient including side effects,benefits and dose adjustment .Patient is willing to start Lexapro 5 mg po daily.Continue Neurontin 300 mg po tid,Seroquel 150 mg po hs. Supportive therapy provided. Total face to face time:: 30 Mental Status Exam - Mental Status Exam Alert and Oriented to: Time, Place, Person Cognitive Function: Grossly Intact Patient Appearance: Well Groomed Mood: Anxious Affect: Mood Congruent, Labile Patient Behavior: Cooperative Speech Pattern: Clear Voice Loudness: Normal Thought Process: Goal Oriented Thought Disorder: Not Present Hallucinations: Denies Suicidal Ideation: Denies Homicidal Ideation: Denies Insight/Judgement: Fair Sleep: Fair Appetite: Fair Muscle strength/Tone: Normal Gait/Station: Normal Psychiatric Treatment Plan - Problem List (1) Cannabis dependence Current Visit: Yes (2) Nicotine dependence Current Visit: Yes Qualifiers: Nicotine product type: cigarettes Substance use status: uncomplicated Qualified Code(s): F17.210 - Nicotine dependence, cigarettes, uncomplicated (3) Substance induced mood disorder Current Visit: Yes (4) Alcohol dependence Current Visit: Yes (5) Avascular necrosis of bones of both hips Current Visit: No (6) Bipolar II disorder Current Visit: No (7) Cocaine dependence Current Visit: Yes (8) Herniated lumbar intervertebral disc Current Visit: Yes (9) PTSD (post-traumatic stress disorder) Current Visit: Yes
[2017-09-19] MEDS: ESCITALOPRAM OXALATE 10 MG TABLET (FP) PO SCH (15:55)
[2017-09-19] MEDS: ARIPiprazole 2 MG TABLET PO SCH (15:55)
[2017-09-19] MEDS: LIDOCAINE PATCH REMOVAL MC SCH (21:02)
[2017-09-19] MEDS: QUEtiapine FUMARATE 50 MG TABLET PO SCH (21:02)
[2017-09-19] MEDS: THIAMINE HCL 100 MG TABLET (FP) PO SCH (21:02)
[2017-09-20] MEDS: GABAPENTIN 300 MG CAPSULE (FP) PO SCH ×3 (06:48→21:09)
[2017-09-20] MEDS: ARIPiprazole 2 MG TABLET PO SCH (09:55)
[2017-09-20] MEDS: ESCITALOPRAM OXALATE 10 MG TABLET (FP) PO SCH (09:55)
[2017-09-20] MEDS: BENZTROPINE MESYLATE 1 MG TABLET (FP) PO SCH ×2 (09:55→21:11)
[2017-09-20] MEDS: PRENATAL VITAMINS W/ FOLIC ACID TABLET (FP) PO SCH (09:55)
[2017-09-20] MEDS: LIDOCAINE 5% TOPICAL PATCH TP SCH (10:00)
[2017-09-20] MEDS: CYCLOBENZAPRINE HCL 10 MG TABLET (FP) PO PRN ×2 (11:37→21:09)
[2017-09-20] MEDS: NICOTINE POLACRILEX 4 MG GUM BUC PRN ×2 (11:38→17:31)
[2017-09-20] MEDS: QUEtiapine FUMARATE 50 MG TABLET PO SCH (21:09)
[2017-09-20] MEDS: THIAMINE HCL 100 MG TABLET (FP) PO SCH (21:10)
[2017-09-20] MEDS: LIDOCAINE PATCH REMOVAL MC SCH (21:11)
[2017-09-20] MEDS: SENNOSIDES 8.6MG TABLET (FP) PO SCH (21:12)
[2017-09-21] MEDS: GABAPENTIN 300 MG CAPSULE (FP) PO SCH ×3 (06:21→21:13)
[2017-09-21] MEDS: CYCLOBENZAPRINE HCL 10 MG TABLET (FP) PO PRN (06:21)
[2017-09-21] MEDS: BENZTROPINE MESYLATE 1 MG TABLET (FP) PO SCH ×2 (09:56→21:15)
[2017-09-21] MEDS: PRENATAL VITAMINS W/ FOLIC ACID TABLET (FP) PO SCH (09:56)
[2017-09-21] MEDS: SENNOSIDES 8.6MG TABLET (FP) PO SCH ×2 (09:56→21:13)
[2017-09-21] MEDS: LIDOCAINE 5% TOPICAL PATCH TP SCH (09:56)
[2017-09-21] MEDS: ARIPiprazole 2 MG TABLET PO SCH (09:56)
[2017-09-21] MEDS: ESCITALOPRAM OXALATE 10 MG TABLET (FP) PO SCH (09:56)
[2017-09-21] MEDS: NICOTINE POLACRILEX 4 MG GUM BUC PRN ×3 (09:57→21:14)
[2017-09-21] MEDS ORDERED: PT OWN MED DRAWER 7, Y5N ONE (21:06)
[2017-09-21] MEDS: QUEtiapine FUMARATE 50 MG TABLET PO SCH (21:13)
[2017-09-21] MEDS: THIAMINE HCL 100 MG TABLET (FP) PO SCH (21:13)
[2017-09-21] MEDS: LIDOCAINE PATCH REMOVAL MC SCH (21:15)
[2017-09-22] MEDS: GABAPENTIN 300 MG CAPSULE (FP) PO SCH ×3 (06:25→21:10)
[2017-09-22] MEDS: CYCLOBENZAPRINE HCL 10 MG TABLET (FP) PO PRN (06:25)
[2017-09-22] MEDS: BENZTROPINE MESYLATE 1 MG TABLET (FP) PO SCH ×2 (09:44→21:11)
[2017-09-22] MEDS: ESCITALOPRAM OXALATE 10 MG TABLET (FP) PO SCH (09:44)
[2017-09-22] MEDS: ARIPiprazole 2 MG TABLET PO SCH (09:44)
[2017-09-22] MEDS: LIDOCAINE 5% TOPICAL PATCH TP SCH (09:44)
[2017-09-22] MEDS: SENNOSIDES 8.6MG TABLET (FP) PO SCH ×2 (09:44→21:10)
[2017-09-22] MEDS: PRENATAL VITAMINS W/ FOLIC ACID TABLET (FP) PO SCH (09:44)
[2017-09-22] MEDS: NICOTINE POLACRILEX 4 MG GUM BUC PRN ×2 (09:46→17:51)
[2017-09-22 12:06] VITALS: BMI 32.1
[2017-09-22] MEDS ORDERED: PT OWN MED DRAWER 7, Y5N ONE (21:08)
[2017-09-22] MEDS: QUEtiapine FUMARATE 50 MG TABLET PO SCH (21:10)
[2017-09-22] MEDS: LIDOCAINE PATCH REMOVAL MC SCH (21:11)
[2017-09-22] MEDS: THIAMINE HCL 100 MG TABLET (FP) PO SCH (21:11)
[2017-09-23] MEDS: GABAPENTIN 300 MG CAPSULE (FP) PO SCH ×3 (06:07→21:06)
[2017-09-23] MEDS: CYCLOBENZAPRINE HCL 10 MG TABLET (FP) PO PRN (07:02)
[2017-09-23] MEDS: PRENATAL VITAMINS W/ FOLIC ACID TABLET (FP) PO SCH (10:08)
[2017-09-23] MEDS: BENZTROPINE MESYLATE 1 MG TABLET (FP) PO SCH ×2 (10:08→21:16)
[2017-09-23] MEDS: LIDOCAINE 5% TOPICAL PATCH TP SCH (10:08)
[2017-09-23] MEDS: ARIPiprazole 2 MG TABLET PO SCH (10:08)
[2017-09-23] MEDS: SENNOSIDES 8.6MG TABLET (FP) PO SCH ×2 (10:08→21:07)
[2017-09-23] MEDS: ESCITALOPRAM OXALATE 10 MG TABLET (FP) PO SCH (10:08)
[2017-09-23] MEDS: NICOTINE POLACRILEX 4 MG GUM BUC PRN ×4 (10:11→21:08)
[2017-09-23] MEDS: hydrOXYzine PAMOATE 50 MG CAPSULE (FP) PO PRN (16:48)
[2017-09-23] MEDS: THIAMINE HCL 100 MG TABLET (FP) PO SCH (21:06)
[2017-09-23] MEDS: QUEtiapine FUMARATE 50 MG TABLET PO SCH (21:07)
[2017-09-23] MEDS: LIDOCAINE PATCH REMOVAL MC SCH (21:07)
[2017-09-24] MEDS: GABAPENTIN 300 MG CAPSULE (FP) PO SCH ×3 (06:39→21:20)
[2017-09-24] MEDS: SENNOSIDES 8.6MG TABLET (FP) PO SCH ×2 (09:48→21:20)
[2017-09-24] MEDS: ARIPiprazole 2 MG TABLET PO SCH (09:48)
[2017-09-24] MEDS: PRENATAL VITAMINS W/ FOLIC ACID TABLET (FP) PO SCH (09:48)
[2017-09-24] MEDS: LIDOCAINE 5% TOPICAL PATCH TP SCH (09:48)
[2017-09-24] MEDS: BENZTROPINE MESYLATE 1 MG TABLET (FP) PO SCH ×2 (09:49→21:22)
[2017-09-24] MEDS: ESCITALOPRAM OXALATE 10 MG TABLET (FP) PO SCH (09:49)
[2017-09-24] MEDS: NICOTINE POLACRILEX 4 MG GUM BUC PRN ×3 (09:51→21:21)
[2017-09-24] MEDS: CYCLOBENZAPRINE HCL 10 MG TABLET (FP) PO PRN (18:23)
[2017-09-24] MEDS: QUEtiapine FUMARATE 50 MG TABLET PO SCH (21:20)
[2017-09-24] MEDS: THIAMINE HCL 100 MG TABLET (FP) PO SCH (21:20)
[2017-09-24] MEDS: LIDOCAINE PATCH REMOVAL MC SCH (21:21)
[2017-09-25] MEDS: GABAPENTIN 300 MG CAPSULE (FP) PO SCH ×3 (06:48→21:22)
[2017-09-25] MEDS: CYCLOBENZAPRINE HCL 10 MG TABLET (FP) PO PRN ×2 (06:49→21:23)
[2017-09-25] MEDS: NICOTINE POLACRILEX 4 MG GUM BUC PRN ×3 (06:50→18:32)
[2017-09-25] MEDS: ARIPiprazole 2 MG TABLET PO SCH (09:45)
[2017-09-25] MEDS: PRENATAL VITAMINS W/ FOLIC ACID TABLET (FP) PO SCH (09:45)
[2017-09-25] MEDS: ESCITALOPRAM OXALATE 10 MG TABLET (FP) PO SCH (09:45)
[2017-09-25] MEDS: LIDOCAINE 5% TOPICAL PATCH TP SCH (09:46)
[2017-09-25] MEDS: SENNOSIDES 8.6MG TABLET (FP) PO SCH ×2 (09:46→21:22)
[2017-09-25] MEDS: BENZTROPINE MESYLATE 1 MG TABLET (FP) PO SCH ×2 (09:47→21:23)
[2017-09-25] MEDS: THIAMINE HCL 100 MG TABLET (FP) PO SCH (21:22)
[2017-09-25] MEDS: QUEtiapine FUMARATE 50 MG TABLET PO SCH (21:22)
[2017-09-25] MEDS: LIDOCAINE PATCH REMOVAL MC SCH (21:24)
[2017-09-26] MEDS: CYCLOBENZAPRINE HCL 10 MG TABLET (FP) PO PRN (06:26)
[2017-09-26] MEDS: NICOTINE POLACRILEX 4 MG GUM BUC PRN ×4 (06:26→18:35)
[2017-09-26] MEDS: GABAPENTIN 300 MG CAPSULE (FP) PO SCH ×3 (07:00→21:03)
[2017-09-26] MEDS: PRENATAL VITAMINS W/ FOLIC ACID TABLET (FP) PO SCH (10:03)
[2017-09-26] MEDS: ESCITALOPRAM OXALATE 10 MG TABLET (FP) PO SCH (10:06)
[2017-09-26] MEDS: BENZTROPINE MESYLATE 1 MG TABLET (FP) PO SCH ×2 (10:07→21:03)
[2017-09-26] MEDS: ARIPiprazole 2 MG TABLET PO SCH (10:07)
[2017-09-26] MEDS: SENNOSIDES 8.6MG TABLET (FP) PO SCH ×2 (10:07→21:03)
[2017-09-26] MEDS: LIDOCAINE 5% TOPICAL PATCH TP SCH (10:08)
[2017-09-26] MEDS: LIDOCAINE PATCH REMOVAL MC SCH (21:03)
[2017-09-26] MEDS: QUEtiapine FUMARATE 50 MG TABLET PO SCH (21:03)
[2017-09-26] MEDS: THIAMINE HCL 100 MG TABLET (FP) PO SCH (21:03)
[2017-09-27] MEDS: CYCLOBENZAPRINE HCL 10 MG TABLET (FP) PO PRN ×2 (06:26→17:08)
[2017-09-27] MEDS: NICOTINE POLACRILEX 4 MG GUM BUC PRN ×4 (06:26→18:47)
[2017-09-27] MEDS: GABAPENTIN 300 MG CAPSULE (FP) PO SCH ×3 (06:26→21:05)
[2017-09-27] MEDS: LIDOCAINE 5% TOPICAL PATCH TP SCH (10:06)
[2017-09-27] MEDS: ARIPiprazole 2 MG TABLET PO SCH (10:06)
[2017-09-27] MEDS: ESCITALOPRAM OXALATE 10 MG TABLET (FP) PO SCH (10:06)
[2017-09-27] MEDS: BENZTROPINE MESYLATE 1 MG TABLET (FP) PO SCH ×2 (10:07→21:07)
[2017-09-27] MEDS: SENNOSIDES 8.6MG TABLET (FP) PO SCH ×2 (10:07→21:06)
[2017-09-27] MEDS: PRENATAL VITAMINS W/ FOLIC ACID TABLET (FP) PO SCH (10:07)
[2017-09-27] MEDS: THIAMINE HCL 100 MG TABLET (FP) PO SCH (21:05)
[2017-09-27] MEDS: QUEtiapine FUMARATE 50 MG TABLET PO SCH (21:06)
[2017-09-27] MEDS: LIDOCAINE PATCH REMOVAL MC SCH (21:07)
[2017-09-28] MEDS: GABAPENTIN 300 MG CAPSULE (FP) PO SCH ×3 (06:39→21:07)
[2017-09-28] MEDS: CYCLOBENZAPRINE HCL 10 MG TABLET (FP) PO PRN ×2 (06:39→13:12)
[2017-09-28] MEDS: NICOTINE POLACRILEX 4 MG GUM BUC PRN ×4 (06:40→22:12)
[2017-09-28] MEDS: LIDOCAINE 5% TOPICAL PATCH TP SCH (09:50)
[2017-09-28] MEDS: SENNOSIDES 8.6MG TABLET (FP) PO SCH ×2 (09:50→21:07)
[2017-09-28] MEDS: PRENATAL VITAMINS W/ FOLIC ACID TABLET (FP) PO SCH (09:50)
[2017-09-28] MEDS: ARIPiprazole 2 MG TABLET PO SCH (09:51)
[2017-09-28] MEDS: BENZTROPINE MESYLATE 1 MG TABLET (FP) PO SCH ×2 (09:51→21:08)
[2017-09-28] MEDS: ESCITALOPRAM OXALATE 10 MG TABLET (FP) PO SCH (09:51)
--- NOTE | 2017-09-28 12:28 | PN ---
[facility] Progress Note Note: Pt presents with c/o right flank area discomfort x 2 days. Vital Signs Temperature 97.9 F 09/28/17 07:40 Pulse Rate 66 09/28/17 07:40 Respiratory Rate 18 09/28/17 07:40 Blood Pressure 107/73 09/28/17 07:40 O2 Sat by Pulse Oximetry (%) Subj: Denies frequency, urgency and dysuria. + right flank discomfort. Afebrile. Obj: General: skin warm,dry and intact Gi: soft, no distention. : no pelvic tenderness, negative CVA tenderness A/P: Right flank area discomfort Rule out UTI Increase oral fluids Check UA continue to monitor clinically
[2017-09-28 18:08] LABS: URINE APPEARANCE SLCLOUDY; URINE BILIRUBIN NEGATIVE (<2.0 mg/dL); URINE BLOOD NEGATIVE (NEGATIVE); URINE COLOR YELLOW; URINE GLUCOSE (UA) NEGATIVE (NEGATIVE); URINE KETONE NEGATIVE (NEGATIVE); URINE LEUK ESTERASE TRACE (NEGATIVE); URINE NITRITE NEGATIVE (NEGATIVE); URINE PROTEIN NEGATIVE (NEGATIVE); URINE UROBILINOGEN NEGATIVE mg/dL (0.2-1.0)
[2017-09-28 18:15] LABS: EPI CELLS RARE /HPF (FEW); URINE BACTERIA RARE /hpf (NONE SEEN); URINE MUCUS RARE
[2017-09-28] MEDS: THIAMINE HCL 100 MG TABLET (FP) PO SCH (21:07)
[2017-09-28] MEDS: QUEtiapine FUMARATE 50 MG TABLET PO SCH (21:07)
[2017-09-28] MEDS: LIDOCAINE PATCH REMOVAL MC SCH (21:08)
[2017-09-29] MEDS: CYCLOBENZAPRINE HCL 10 MG TABLET (FP) PO PRN ×2 (06:40→15:11)
[2017-09-29] MEDS: NICOTINE POLACRILEX 4 MG GUM BUC PRN ×4 (06:40→17:27)
[2017-09-29] MEDS: GABAPENTIN 300 MG CAPSULE (FP) PO SCH ×3 (06:40→21:15)
[2017-09-29] MEDS: ESCITALOPRAM OXALATE 10 MG TABLET (FP) PO SCH (09:50)
[2017-09-29] MEDS: LIDOCAINE 5% TOPICAL PATCH TP SCH (09:50)
[2017-09-29] MEDS: SENNOSIDES 8.6MG TABLET (FP) PO SCH ×2 (09:50→21:15)
[2017-09-29] MEDS: PRENATAL VITAMINS W/ FOLIC ACID TABLET (FP) PO SCH (09:50)
[2017-09-29] MEDS: BENZTROPINE MESYLATE 1 MG TABLET (FP) PO SCH ×2 (09:50→21:16)
[2017-09-29] MEDS: ARIPiprazole 2 MG TABLET PO SCH (09:50)
[2017-09-29] MEDS: hydrOXYzine PAMOATE 50 MG CAPSULE (FP) PO PRN (15:11)
[2017-09-29] MEDS: THIAMINE HCL 100 MG TABLET (FP) PO SCH (21:13)
[2017-09-29] MEDS: QUEtiapine FUMARATE 50 MG TABLET PO SCH (21:15)
[2017-09-29] MEDS: LIDOCAINE PATCH REMOVAL MC SCH (21:16)
[2017-09-30] MEDS: GABAPENTIN 300 MG CAPSULE (FP) PO SCH ×3 (06:11→21:14)
[2017-09-30] MEDS: NICOTINE POLACRILEX 4 MG GUM BUC PRN ×2 (08:32→15:16)
[2017-09-30] MEDS: PRENATAL VITAMINS W/ FOLIC ACID TABLET (FP) PO SCH (10:09)
[2017-09-30] MEDS: ESCITALOPRAM OXALATE 10 MG TABLET (FP) PO SCH (10:10)
[2017-09-30] MEDS: ARIPiprazole 2 MG TABLET PO SCH (10:10)
[2017-09-30] MEDS: LIDOCAINE 5% TOPICAL PATCH TP SCH (10:11)
[2017-09-30] MEDS: BENZTROPINE MESYLATE 1 MG TABLET (FP) PO SCH ×2 (10:11→21:15)
[2017-09-30] MEDS: SENNOSIDES 8.6MG TABLET (FP) PO SCH ×2 (10:11→21:14)
[2017-09-30] MEDS: CYCLOBENZAPRINE HCL 10 MG TABLET (FP) PO PRN ×2 (10:12→21:14)
--- NOTE | 2017-09-30 12:55 | PN ---
[facility] Progress Note Note: UA reviewed and results stable. Pt informed of results. Will continue to monitor.
[2017-09-30] MEDS: THIAMINE HCL 100 MG TABLET (FP) PO SCH (21:13)
[2017-09-30] MEDS: QUEtiapine FUMARATE 50 MG TABLET PO SCH (21:14)
[2017-09-30] MEDS: LIDOCAINE PATCH REMOVAL MC SCH (21:15)
[2017-10-01] MEDS: GABAPENTIN 300 MG CAPSULE (FP) PO SCH ×3 (06:39→21:03)
[2017-10-01] MEDS: NICOTINE POLACRILEX 4 MG GUM BUC PRN ×4 (06:40→18:18)
[2017-10-01] MEDS: CYCLOBENZAPRINE HCL 10 MG TABLET (FP) PO PRN (06:40)
[2017-10-01] MEDS: BENZTROPINE MESYLATE 1 MG TABLET (FP) PO SCH ×2 (09:58→21:04)
[2017-10-01] MEDS: LIDOCAINE 5% TOPICAL PATCH TP SCH (09:58)
[2017-10-01] MEDS: ESCITALOPRAM OXALATE 10 MG TABLET (FP) PO SCH (09:58)
[2017-10-01] MEDS: SENNOSIDES 8.6MG TABLET (FP) PO SCH ×2 (09:58→21:04)
[2017-10-01] MEDS: PRENATAL VITAMINS W/ FOLIC ACID TABLET (FP) PO SCH (09:58)
[2017-10-01] MEDS: ARIPiprazole 2 MG TABLET PO SCH (09:58)
[2017-10-01] MEDS: QUEtiapine FUMARATE 50 MG TABLET PO SCH (21:03)
[2017-10-01] MEDS: LIDOCAINE PATCH REMOVAL MC SCH (21:04)
[2017-10-01] MEDS: THIAMINE HCL 100 MG TABLET (FP) PO SCH (21:04)
[2017-10-02] MEDS: GABAPENTIN 300 MG CAPSULE (FP) PO SCH ×3 (06:07→21:06)
[2017-10-02] MEDS: CYCLOBENZAPRINE HCL 10 MG TABLET (FP) PO PRN (06:07)
[2017-10-02] MEDS: NICOTINE POLACRILEX 4 MG GUM BUC PRN ×5 (06:07→21:09)
[2017-10-02] MEDS: ARIPiprazole 2 MG TABLET PO SCH (09:56)
[2017-10-02] MEDS: PRENATAL VITAMINS W/ FOLIC ACID TABLET (FP) PO SCH (09:56)
[2017-10-02] MEDS: BENZTROPINE MESYLATE 1 MG TABLET (FP) PO SCH ×2 (09:56→21:07)
[2017-10-02] MEDS: SENNOSIDES 8.6MG TABLET (FP) PO SCH ×2 (09:56→21:06)
[2017-10-02] MEDS: ESCITALOPRAM OXALATE 10 MG TABLET (FP) PO SCH (09:56)
[2017-10-02] MEDS: LIDOCAINE 5% TOPICAL PATCH TP SCH (09:57)
[2017-10-02] MEDS: hydrOXYzine PAMOATE 50 MG CAPSULE (FP) PO PRN (09:58)
[2017-10-02] MEDS: THIAMINE HCL 100 MG TABLET (FP) PO SCH (21:06)
[2017-10-02] MEDS: QUEtiapine FUMARATE 50 MG TABLET PO SCH (21:06)
[2017-10-02] MEDS: LIDOCAINE PATCH REMOVAL MC SCH (21:07)
[2017-10-03] MEDS: GABAPENTIN 300 MG CAPSULE (FP) PO SCH ×3 (06:06→21:01)
[2017-10-03] MEDS: CYCLOBENZAPRINE HCL 10 MG TABLET (FP) PO PRN (06:06)
[2017-10-03] MEDS: NICOTINE POLACRILEX 4 MG GUM BUC PRN ×5 (06:06→21:02)
[2017-10-03] MEDS: ESCITALOPRAM OXALATE 10 MG TABLET (FP) PO SCH (09:42)
[2017-10-03] MEDS: ARIPiprazole 2 MG TABLET PO SCH (09:42)
[2017-10-03] MEDS: LIDOCAINE 5% TOPICAL PATCH TP SCH (09:43)
[2017-10-03] MEDS: PRENATAL VITAMINS W/ FOLIC ACID TABLET (FP) PO SCH (09:43)
[2017-10-03] MEDS: SENNOSIDES 8.6MG TABLET (FP) PO SCH (09:43)
[2017-10-03] MEDS: BENZTROPINE MESYLATE 1 MG TABLET (FP) PO SCH ×2 (09:43→21:02)
[2017-10-03] MEDS: DOCUSATE SODIUM 100 MG CAPSULE (FP) PO SCH ×2 (13:13→21:01)
[2017-10-03] MEDS: THIAMINE HCL 100 MG TABLET (FP) PO SCH (21:01)
[2017-10-03] MEDS: QUEtiapine FUMARATE 50 MG TABLET PO SCH (21:01)
[2017-10-03] MEDS: LIDOCAINE PATCH REMOVAL MC SCH (21:02)
[2017-10-04] MEDS: GABAPENTIN 300 MG CAPSULE (FP) PO SCH ×3 (06:40→21:20)
[2017-10-04] MEDS: CYCLOBENZAPRINE HCL 10 MG TABLET (FP) PO PRN ×2 (06:40→12:36)
[2017-10-04] MEDS: DOCUSATE SODIUM 100 MG CAPSULE (FP) PO SCH ×3 (06:40→21:20)
[2017-10-04] MEDS: NICOTINE POLACRILEX 4 MG GUM BUC PRN ×4 (06:41→17:51)
[2017-10-04] MEDS: LIDOCAINE 5% TOPICAL PATCH TP SCH ×2 (09:58→14:10)
[2017-10-04] MEDS: PRENATAL VITAMINS W/ FOLIC ACID TABLET (FP) PO SCH (09:58)
[2017-10-04] MEDS: BENZTROPINE MESYLATE 1 MG TABLET (FP) PO SCH ×2 (09:59→21:21)
[2017-10-04] MEDS: ESCITALOPRAM OXALATE 10 MG TABLET (FP) PO SCH (09:59)
[2017-10-04] MEDS: ARIPiprazole 2 MG TABLET PO SCH (09:59)
[2017-10-04] MEDS: QUEtiapine FUMARATE 50 MG TABLET PO SCH (21:20)
[2017-10-04] MEDS: LIDOCAINE PATCH REMOVAL MC SCH ×2 (21:21)
[2017-10-04] MEDS: THIAMINE HCL 100 MG TABLET (FP) PO SCH (21:21)
[2017-10-05] MEDS: GABAPENTIN 300 MG CAPSULE (FP) PO SCH ×3 (06:35→21:09)
[2017-10-05] MEDS: CYCLOBENZAPRINE HCL 10 MG TABLET (FP) PO PRN (06:35)
[2017-10-05] MEDS: DOCUSATE SODIUM 100 MG CAPSULE (FP) PO SCH ×3 (06:36→21:09)
[2017-10-05] MEDS: NICOTINE POLACRILEX 4 MG GUM BUC PRN ×4 (10:03→21:10)
[2017-10-05] MEDS: BENZTROPINE MESYLATE 1 MG TABLET (FP) PO SCH ×2 (10:03→21:10)
[2017-10-05] MEDS: PRENATAL VITAMINS W/ FOLIC ACID TABLET (FP) PO SCH (10:04)
[2017-10-05] MEDS: ESCITALOPRAM OXALATE 10 MG TABLET (FP) PO SCH (10:04)
[2017-10-05] MEDS: ARIPiprazole 2 MG TABLET PO SCH (10:04)
[2017-10-05] MEDS: hydrOXYzine PAMOATE 50 MG CAPSULE (FP) PO PRN ×2 (10:06→22:29)
[2017-10-05] MEDS: LIDOCAINE 5% TOPICAL PATCH TP SCH ×2 (10:07→10:38)
--- NOTE | 2017-10-05 10:08 | PN ---
Psychiatric Progress Note Vital Signs: Vital Signs Period Temp Pulse Resp BP Sys/Elizabeth Pulse Ox Last 24 Hr 97.4 F 71 18-18 105/70 Date of Session: 10/05/17 Chief Complaint:: "Discharge." HPI: Pt. was [facility] for alcohol and cocaine dependence. ROS: Unremarkable. Current Medications: Active Medications Generic Name Dose Route Start Last Admin Trade Name Freq PRN Reason Stop Dose Admin Acetaminophen 650 mg 09/14/17 14:21 Tylenol - PO Q4H PRN FEVER Al Hydroxide/Mg Hydroxide 30 ml 09/14/17 14:21 Mylanta Oral Suspension - PO Q6H PRN DYSPEPSIA Aripiprazole 2 mg 09/19/17 16:00 10/04/17 09:59 Abilify PO 2 mg DAILY SUSAN Administration Benztropine Mesylate 0.5 mg 09/14/17 22:00 10/04/17 21:21 Cogentin - PO 0.5 mg BID SUSAN Administration Cyclobenzaprine HCl 10 mg 09/16/17 12:56 10/05/17 06:35 Flexeril - PO 10 mg TID PRN Administration MUSCLE SPASMS Docusate Sodium 100 mg 10/03/17 14:00 10/05/17 06:36 Colace - PO 100 mg TID SUSAN Administration Escitalopram Oxalate 5 mg 09/19/17 15:45 10/04/17 09:59 Lexapro - PO 5 mg DAILY SUSAN Administration Eucalyptus/Menthol/Phenol/Sorbitol 1 each 09/14/17 14:21 Cepastat Lozenge - MM Q4H PRN SORE THROAT Gabapentin 300 mg 09/14/17 22:00 10/05/17 06:35 Neurontin - PO 300 mg TID SUSAN Administration Guaifenesin 10 ml 09/14/17 14:21 Robitussin Dm - PO Q6H PRN COUGH Hydroxyzine Pamoate 50 mg 09/14/17 14:01 10/02/17 09:58 Vistaril - PO 50 mg Q4H PRN Administration AGITATION Ibuprofen 400 mg 09/14/17 14:21 Motrin - PO Q6H PRN Pain Level 4-6 Lidocaine 1 patch 09/17/17 10:00 10/04/17 09:58 Lidoderm Patch - TP 1 patch DAILY SUSAN Administration Lidocaine 1 patch 10/04/17 14:00 04/24/18 14:10 Lidoderm Patch - TP 1 patch DAILY SUSAN Administration Loperamide HCl 4 mg 09/14/17 14:21 09/16/17 04:22 Imodium - PO 4 mg Q6H PRN Administration DIARRHEA Magnesium Citrate 300 ml 09/14/17 14:21 Citroma - PO Q48H PRN CONSTIPATION Magnesium Hydroxide 30 ml 09/14/17 14:21 Milk Of Magnesia - PO DAILY PRN CONSTIPATION Melatonin 5 mg 09/14/17 22:00 09/14/17 23:46 Melatonin PO 5 mg HS PRN Administration INSOMNIA Miscellaneous 1 each 09/16/17 22:00 10/04/17 21:21 Lidoderm Patch Removal MC 1 each DAILY@2200 SUSAN Administration Miscellaneous 1 each 10/04/17 22:00 10/04/17 21:21 Lidoderm Patch Removal MC 1 each DAILY@2200 SUSAN Administration Nicotine Polacrilex 4 mg 09/14/17 22:21 10/04/17 17:51 Nicorette Gum - BUC 4 mg Q2H PRN Administration NICOTINE REPLACEMENT RX Multivit/Folic Acid/Iron 1 tab 09/15/17 10:00 10/04/17 09:58 Vitamins (Sjr) - PO 1 tab DAILY SUSAN Administration Pseudoephedrine/Triprolidine 1 combo 09/14/17 14:21 Actifed - PO TID PRN NASAL CONGESTION Quetiapine Fumarate 150 mg 09/16/17 22:00 10/04/17 21:20 Seroquel - PO 150 mg HS SUSAN Administration Thiamine HCl 100 mg 09/14/17 22:00 10/04/17 21:21 Vitamin B1 - PO 100 mg HS SUSAN Administration Medication(s) Change(s): No. Current Side Effect: No Lab tests ordered: No Lab tests reviewed: Yes Provider note:: Patient will complete the program on 10/06/17. She has met her treatment goals and will continue to address her issues at the [facility] in [place]. Patient is able to identify skills and behaviors which contribute to relapse. In addition patient and has a support system she can utilize to help her maintain recovery. A 30 day prescription of Abilify 2mg + Cogentin 0.5 BID + Lexapro 5mg + Seroquel 150mg will be electronically sent to [facility]. Patient is stable for discharge. Total face to face time:: 35 Mental Status Exam - Mental Status Exam Alert and Oriented to: Time, Place, Person Cognitive Function: Good Patient Appearance: Well Groomed Mood: Hopeful Affect: Appropriate Patient Behavior: Appropriate, Cooperative Speech Pattern: Clear, Appropriate Voice Loudness: Normal Thought Process: Goal Oriented Thought Disorder: Not Present Hallucinations: Denies Suicidal Ideation: Denies Homicidal Ideation: Denies Insight/Judgement: Fair Sleep: Fair Appetite: Good Muscle strength/Tone: Normal Gait/Station: Normal Psychiatric Treatment Plan - Problem List (1) Nicotine dependence Current Visit: Yes Qualifiers: Nicotine product type: cigarettes Substance use status: uncomplicated Qualified Code(s): F17.210 - Nicotine dependence, cigarettes, uncomplicated (2) Alcohol dependence Current Visit: Yes (3) Avascular necrosis of bones of both hips Current Visit: Yes (4) Bipolar II disorder Current Visit: Yes (5) Cannabis dependence Current Visit: Yes (6) Cocaine dependence Current Visit: Yes (7) Herniated lumbar intervertebral disc Current Visit: Yes (8) PTSD (post-traumatic stress disorder) Current Visit: Yes (9) Substance induced mood disorder Current Visit: Yes
[2017-10-05] MEDS ORDERED: PT OWN MED DRAWER 7, Y5N ONE (10:44)
[2017-10-05] MEDS: QUEtiapine FUMARATE 50 MG TABLET PO SCH (21:09)
[2017-10-05] MEDS: THIAMINE HCL 100 MG TABLET (FP) PO SCH (21:09)
[2017-10-05] MEDS: LIDOCAINE PATCH REMOVAL MC SCH ×2 (21:10)
[2017-10-06] MEDS: CYCLOBENZAPRINE HCL 10 MG TABLET (FP) PO PRN (06:28)
[2017-10-06] MEDS: GABAPENTIN 300 MG CAPSULE (FP) PO SCH (06:28)
[2017-10-06] MEDS: DOCUSATE SODIUM 100 MG CAPSULE (FP) PO SCH (06:28)
[2017-10-06] MEDS: NICOTINE POLACRILEX 4 MG GUM BUC PRN (06:29)
[2017-10-06 06:54] VITALS: BP 104/63; PULSE 74; TEMP 97.8
[2017-10-06] MEDS ORDERED: PT OWN MED DRAWER 7, Y5N ONE (07:44)
[2017-10-06] MEDS: ARIPiprazole 2 MG TABLET PO SCH (09:06)
[2017-10-06] MEDS: PRENATAL VITAMINS W/ FOLIC ACID TABLET (FP) PO SCH (09:06)
[2017-10-06] MEDS: ESCITALOPRAM OXALATE 10 MG TABLET (FP) PO SCH (09:06)
[2017-10-06] MEDS: BENZTROPINE MESYLATE 1 MG TABLET (FP) PO SCH (09:07)
[2017-10-06] MEDS: LIDOCAINE 5% TOPICAL PATCH TP SCH ×2 (09:07)
== END 2017-10-06 09:35 | disposition home or self-care (01) | DRG 772 ==
LOC: YASAS 12:35 → Y3E 12:44
PROVIDERS: ADMIT Psychiatry & Neurology Psychiatry; ATTEND Psychiatry & Neurology Psychiatry
PROC: HZ42ZZZ Group Counseling for Substance Abuse Treatment, Cognitive-Behavioral (ICD-10-PCS; principal; 2017-09-14)
DX: F11.20 Opioid dependence, uncomplicated (principal); F14.20 Cocaine dependence, uncomplicated; F12.20 Cannabis dependence, uncomplicated; F43.10 Post-traumatic stress disorder, unspecified; F31.81 Bipolar II disorder; F19.24 Other psychoactive substance dependence with psychoactive substance-induced mood disorder; M51.26 Other intervertebral disc displacement, lumbar region; M87.051 Idiopathic aseptic necrosis of right femur
CPT/HCPCS: 81003; 81015

== ENCOUNTER 2020-08-29 16:14 | Inpatient (IN) | payer OTHER ==
[2020-08-29 18:04] VITALS: BMI 23.8
[2020-08-29] MEDS ORDERED: MAG HYDROX/AL HYDROX/SIMETH 30 ML UNIT-DOSE CUP PO PRN (21:17)
[2020-08-29] MEDS ORDERED: BISMUTH SUBSALICYLATE 524 MG/30 ML UD PO PRN (21:17)
[2020-08-29] MEDS ORDERED: diazePAM 5 MG TABLET PO ONE (21:17)
[2020-08-29] MEDS ORDERED: MAGNESIUM HYDROX 2400MG/30ML ORAL SUSPENSION 30 ML CUP PO PRN (21:17)
[2020-08-29] MEDS ORDERED: ACETAMINOPHEN 325 MG TABLET (FP) PO PRN ×2 (21:17)
[2020-08-29] MEDS ORDERED: diazePAM 5 MG TABLET PO PRN (21:17)
[2020-08-29] MEDS ORDERED: MAGNESIUM CITRATE 300 ML BOTTLE PO PRN (21:17)
[2020-08-29] MEDS ORDERED: MENTHOL/PHENOL 1 EACH UD MM PRN (21:17)
[2020-08-29] MEDS ORDERED: IBUPROFEN 400 MG TABLET (FP) PO PRN (21:17)
[2020-08-29] MEDS ORDERED: ONDANSETRON *ODT* 4 MG TABLET SL PRN (21:17)
[2020-08-29] MEDS ORDERED: METHOCARBAMOL 500 MG TABLET PO PRN (21:17)
[2020-08-29] MEDS: guaiFENesin 200 MG/10 ML 10 ML UNIT-DOSE CUPS PO SCH (22:58)
[2020-08-29] MEDS: THIAMINE HCL 100 MG TABLET (FP) PO SCH (22:59)
[2020-08-29] MEDS: MELATONIN 5 MG TABLETS PO PRN (22:59)
[2020-08-29] MEDS: diazePAM 5 MG TABLET PO SCH (23:03)
[2020-08-30] MEDS: diazePAM 5 MG TABLET PO SCH ×4 (06:02→22:00)
[2020-08-30] MEDS: guaiFENesin 200 MG/10 ML 10 ML UNIT-DOSE CUPS PO SCH ×4 (06:02→22:00)
[2020-08-30 09:53] LABS: HEMATOCRIT 40.3 % (32.4-45.2); HEMOGLOBIN 13.4 GM/dL (10.7-15.3); MCH 30.5 pg (25.7-33.7); MCHC 33.3 g/dl (32.0-36.0); MEAN CELL VOLUME 91.7 fl (80-96); MEAN PLT VOLUME 8.7 fl (7.5-11.1); PLATELET COUNT 285 K/MM3 (134-434); RDW 13.7 % (11.6-15.6); WHITE BLOOD COUNT 4.5 K/mm3 (4.0-10.0)
[2020-08-30 10:25] LABS: POTASSIUM 3.9 mmol/L (3.5-5.1)
[2020-08-30 10:28] LABS: ALBUMIN 3.1 g/dl (3.4-5.0); BLOOD UREA NITROGEN 12.8 mg/dL (7-18); CALCIUM 9.2 mg/dL (8.5-10.1)
[2020-08-30 10:31] LABS: CREATININE 0.8 mg/dL (0.55-1.3)
[2020-08-30 10:33] LABS: BILIRUBIN,TOTAL 0.8 mg/dL (0.2-1); TOT PROT 6.6 g/dl (6.4-8.2)
[2020-08-30] MEDS: PRENATAL VITAMINS W/ FOLIC ACID TABLET (FP) PO SCH (10:46)
[2020-08-30 11:19] LABS: HIV INTERPRETATION NEGATIVE (NEGATIVE)
[2020-08-30] MEDS: NICOTINE POLACRILEX 2 MG GUM BUC PRN ×3 (11:49→17:17)
[2020-08-30] MEDS: traZODone HCL 50 MG TABLET (FP) PO SCH (22:00)
[2020-08-30] MEDS: THIAMINE HCL 100 MG TABLET (FP) PO SCH (22:00)
[2020-08-30] MEDS: MELATONIN 5 MG TABLETS PO PRN (22:01)
[2020-08-31] MEDS: guaiFENesin 200 MG/10 ML 10 ML UNIT-DOSE CUPS PO SCH ×4 (05:19→21:56)
[2020-08-31] MEDS: diazePAM 5 MG TABLET PO SCH ×3 (05:19→21:56)
[2020-08-31] MEDS: NICOTINE POLACRILEX 2 MG GUM BUC PRN ×3 (10:22→17:45)
[2020-08-31] MEDS: PRENATAL VITAMINS W/ FOLIC ACID TABLET (FP) PO SCH (10:23)
[2020-08-31] MEDS: THIAMINE HCL 100 MG TABLET (FP) PO SCH (21:56)
[2020-08-31] MEDS: traZODone HCL 50 MG TABLET (FP) PO SCH (21:56)
[2020-09-01] MEDS: diazePAM 5 MG TABLET PO SCH ×2 (06:23→18:24)
[2020-09-01] MEDS: guaiFENesin 200 MG/10 ML 10 ML UNIT-DOSE CUPS PO SCH ×3 (06:24→15:27)
[2020-09-01] MEDS: PRENATAL VITAMINS W/ FOLIC ACID TABLET (FP) PO SCH (09:08)
[2020-09-01] MEDS: LIDOCAINE 5% TOPICAL PATCH TP SCH (12:07)
[2020-09-01] MEDS: NICOTINE POLACRILEX 2 MG GUM BUC PRN (18:44)
[2020-09-01] MEDS ORDERED: HYDROCORTISONE ACETATE 25 MG/SUPP.RECT RC SCH (22:00)
[2020-09-01] MEDS ORDERED: QUEtiapine FUMARATE 100 MG TABLET (FP) PO SCH (22:00)
[2020-09-01] MEDS ORDERED: LIDOCAINE PATCH REMOVAL MC SCH (22:00)
[2020-09-01] MEDS: THIAMINE HCL 100 MG TABLET (FP) PO SCH (22:16)
[2020-09-02] MEDS ORDERED: diazePAM 5 MG TABLET PO ONE (06:00)
[2020-09-02 06:48] VITALS: PULSE 79
[2020-09-02] MEDS: NICOTINE POLACRILEX 2 MG GUM BUC PRN ×2 (07:07→09:08)
[2020-09-02] MEDS: PRENATAL VITAMINS W/ FOLIC ACID TABLET (FP) PO SCH (09:03)
[2020-09-02] MEDS: LIDOCAINE 5% TOPICAL PATCH TP SCH (09:04)
[2020-09-02 09:05] VITALS: BP 107/72; TEMP 97.3
== END 2020-09-02 10:00 | disposition other institution (70) | DRG 773 ==
LOC: YASAS 16:14 → Y3N 20:44
PROVIDERS: ADMIT Allergy & Immunology; ATTEND Allergy & Immunology
PROC: HZ2ZZZZ Detoxification Services for Substance Abuse Treatment (ICD-10-PCS; principal; 2020-08-29)
DX: F10.230 Alcohol dependence with withdrawal, uncomplicated (principal); F11.10 Opioid abuse, uncomplicated; F14.20 Cocaine dependence, uncomplicated; F12.20 Cannabis dependence, uncomplicated; F17.210 Nicotine dependence, cigarettes, uncomplicated; F31.9 Bipolar disorder, unspecified; F43.10 Post-traumatic stress disorder, unspecified; F41.9 Anxiety disorder, unspecified; K64.9 Unspecified hemorrhoids; Z62.810 Personal history of physical and sexual abuse in childhood; Z86.19 Personal history of other infectious and parasitic diseases; Z91.410 Personal history of adult physical and sexual abuse; Z87.39 Personal history of other diseases of the musculoskeletal system and connective tissue; Z98.890 Other specified postprocedural states; Z91.011 Allergy to milk products
CPT/HCPCS: 36415; 80053; 85027; 86780; 87389; C9803; U0003

== ENCOUNTER 2021-05-21 16:46 | Inpatient (IN) | payer OTHER ==
[2021-05-21] MEDS ORDERED: IBUPROFEN 400 MG TABLET (FP) PO PRN (19:55)
[2021-05-21] MEDS ORDERED: ACETAMINOPHEN 325 MG TABLET (FP) PO PRN ×2 (19:55)
[2021-05-21] MEDS ORDERED: DICYCLOMINE HCL 10 MG CAPSULE PO PRN (19:55)
[2021-05-21] MEDS ORDERED: MAG HYDROX/AL HYDROX/SIMETH 30 ML UNIT-DOSE CUP PO PRN (19:55)
[2021-05-21] MEDS ORDERED: MENTHOL/PHENOL 1 EACH UD MM PRN (19:55)
[2021-05-21] MEDS ORDERED: MAGNESIUM HYDROX 2400MG/30ML ORAL SUSPENSION 30 ML CUP PO PRN (19:55)
[2021-05-21] MEDS ORDERED: MAGNESIUM CITRATE 300 ML BOTTLE PO PRN (19:55)
[2021-05-21] MEDS ORDERED: BISMUTH SUBSALICYLATE 524 MG/30 ML PO PRN (19:55)
[2021-05-21] MEDS ORDERED: ONDANSETRON *ODT* 4 MG TABLET SL ONE (19:55)
[2021-05-21] MEDS ORDERED: P-EPHED 60MG/TRIPROLIDI 2.5MG TABLET PO PRN (19:55)
[2021-05-21] MEDS ORDERED: diazePAM 5 MG TABLET PO PRN (19:57)
[2021-05-21] MEDS ORDERED: diazePAM 5 MG TABLET ONE (20:21)
[2021-05-21] MEDS ORDERED: hydrOXYzine PAMOATE 25 MG CAPSULE (FP) PO ONE (20:22)
[2021-05-21] MEDS: hydrOXYzine PAMOATE 25 MG CAPSULE (FP) PO PRN (20:23)
[2021-05-21 21:00] VITALS: BMI 24.3
[2021-05-21] MEDS ORDERED: methaDONE HCL 10 MG TABLET (FOR DETOX USE ONLY) PO ONE (21:13)
[2021-05-21] MEDS ORDERED: MELATONIN 5 MG TABLETS PO SCH (22:00)
[2021-05-21] MEDS: THIAMINE HCL 100 MG TABLET (FP) PO SCH (22:45)
[2021-05-21] MEDS: diazePAM 5 MG TABLET PO SCH (22:47)
[2021-05-22] MEDS: cloNIDine HCL 0.1 MG TABLET PO PRN ×2 (03:18→08:53)
[2021-05-22] MEDS: diazePAM 5 MG TABLET PO SCH ×4 (05:46→22:22)
[2021-05-22] MEDS: NICOTINE POLACRILEX 2 MG GUM BUC PRN ×2 (08:55→13:01)
[2021-05-22] MEDS ORDERED: methaDONE HCL 10 MG TABLET (FOR DETOX USE ONLY) PO ONE (10:00)
[2021-05-22] MEDS: PRENATAL VITAMINS W/ FOLIC ACID TABLET (FP) PO SCH (11:29)
[2021-05-22] MEDS: METHOCARBAMOL 500 MG TABLET PO PRN ×2 (11:30→18:16)
[2021-05-22] MEDS: NICOTINE 10 MG CARTRIDGE (INHALER) IH SCH (14:44)
[2021-05-22 14:49] LABS: HEMOGLOBIN 13.3 GM/dL (10.7-15.3); MCH 30.2 pg (25.7-33.7); MCHC 33.2 g/dl (32.0-36.0); MEAN CELL VOLUME 90.9 fl (80-96); MEAN PLT VOLUME 9.1 fl (7.5-11.1); PLATELET COUNT 276 10^3/uL (134-434); WHITE BLOOD COUNT 5.6 K/mm3 (4.0-10.0)
[2021-05-22 15:04] LABS: BLOOD UREA NITROGEN 15.8 mg/dL (7-18); CALCIUM 8.7 mg/dL (8.5-10.1)
[2021-05-22 15:07] LABS: CREATININE 0.7 mg/dL (0.55-1.3)
[2021-05-22 15:09] LABS: TOT PROT 6.1 g/dl (6.4-8.2)
[2021-05-22 15:11] LABS: BILIRUBIN,TOTAL 0.3 mg/dL (0.2-1)
[2021-05-22] MEDS: hydrOXYzine PAMOATE 25 MG CAPSULE (FP) PO PRN (18:16)
[2021-05-22] MEDS ORDERED: QUEtiapine FUMARATE 50 MG TABLET ONE (21:52)
[2021-05-22] MEDS: THIAMINE HCL 100 MG TABLET (FP) PO SCH (22:22)
[2021-05-22] MEDS: QUEtiapine FUMARATE 100 MG TABLET (FP) PO SCH (22:22)
[2021-05-23] MEDS: diazePAM 5 MG TABLET PO SCH ×3 (05:40→22:21)
[2021-05-23] MEDS: cloNIDine HCL 0.1 MG TABLET PO PRN ×2 (05:48→17:59)
[2021-05-23] MEDS ORDERED: methaDONE HCL 10 MG TABLET (FOR DETOX USE ONLY) PO ONE (10:00)
[2021-05-23] MEDS: PRENATAL VITAMINS W/ FOLIC ACID TABLET (FP) PO SCH (10:40)
[2021-05-23] MEDS: hydrOXYzine PAMOATE 25 MG CAPSULE (FP) PO PRN (10:40)
[2021-05-23] MEDS: NICOTINE 10 MG CARTRIDGE (INHALER) IH SCH (10:41)
[2021-05-23] MEDS ORDERED: LIDOCAINE HCL 5% TOP OINTMENT 50 GM TUBE TP ONE (12:11)
[2021-05-23] MEDS: NICOTINE 10 MG CARTRIDGE (INHALER) IH PRN (21:24)
[2021-05-23] MEDS: QUEtiapine FUMARATE 100 MG TABLET (FP) PO SCH (22:20)
[2021-05-23] MEDS: THIAMINE HCL 100 MG TABLET (FP) PO SCH (22:20)
[2021-05-24] MEDS: diazePAM 5 MG TABLET PO SCH ×2 (05:30→17:53)
[2021-05-24] MEDS: NICOTINE 10 MG CARTRIDGE (INHALER) IH PRN ×3 (05:36→21:12)
[2021-05-24] MEDS: PRENATAL VITAMINS W/ FOLIC ACID TABLET (FP) PO SCH (10:10)
[2021-05-24] MEDS: METHOCARBAMOL 500 MG TABLET PO PRN (10:12)
[2021-05-24] MEDS: hydrOXYzine PAMOATE 25 MG CAPSULE (FP) PO PRN (10:12)
[2021-05-24] MEDS ORDERED: FAMOTIDINE 20 MG TABLET PO SCH (22:00)
[2021-05-24] MEDS: THIAMINE HCL 100 MG TABLET (FP) PO SCH (22:01)
[2021-05-24] MEDS: DOCUSATE SODIUM 100 MG CAPSULE (FP) PO SCH (22:01)
[2021-05-24] MEDS: QUEtiapine FUMARATE 100 MG TABLET (FP) PO SCH (22:01)
[2021-05-25] MEDS: METHOCARBAMOL 500 MG TABLET PO PRN (01:22)
[2021-05-25] MEDS: hydrOXYzine PAMOATE 25 MG CAPSULE (FP) PO PRN (01:22)
[2021-05-25] MEDS: NICOTINE 10 MG CARTRIDGE (INHALER) IH PRN (05:03)
[2021-05-25] MEDS ORDERED: diazePAM 5 MG TABLET PO ONE (06:00)
[2021-05-25] MEDS: DOCUSATE SODIUM 100 MG CAPSULE (FP) PO SCH (07:02)
[2021-05-25 07:37] VITALS: BP 98/65; PULSE 70; TEMP 98
== END 2021-05-25 09:15 | disposition home or self-care (01) | DRG 773 ==
LOC: YASAS 16:46 → Y6N 20:12
PROVIDERS: ADMIT Allergy & Immunology; ATTEND Allergy & Immunology
PROC: HZ2ZZZZ Detoxification Services for Substance Abuse Treatment (ICD-10-PCS; principal; 2021-05-21)
DX: F11.23 Opioid dependence with withdrawal (principal); F10.230 Alcohol dependence with withdrawal, uncomplicated; F14.20 Cocaine dependence, uncomplicated; F12.20 Cannabis dependence, uncomplicated; F17.213 Nicotine dependence, cigarettes, with withdrawal; F43.10 Post-traumatic stress disorder, unspecified; F31.9 Bipolar disorder, unspecified; F19.24 Other psychoactive substance dependence with psychoactive substance-induced mood disorder; F19.282 Other psychoactive substance dependence with psychoactive substance-induced sleep disorder; R01.1 Cardiac murmur, unspecified; M87.88 Other osteonecrosis, other site; Z91.011 Allergy to milk products; Z62.810 Personal history of physical and sexual abuse in childhood; Z87.42 Personal history of other diseases of the female genital tract; Z56.0 Unemployment, unspecified
CPT/HCPCS: 36415; 80053; 85027; 86780; 93005; 93010; C9803; J0735; Q0162; U0003; U0005